=== PATIENT | female | born 1960 | race Asian ===

== ENCOUNTER → 2016-08-19 | Outpatient (CLI) | payer OTHER ==
[2016-08-19 09:46] LABS: Hemoglobin A1C 6.6 % (4.2-6.1)
[2016-08-19 09:50] LABS: ALT 67 U/L (9-52); AST 39 U/L (14-36); Alkaline Phosphatase 131 U/L (38-126); Anion Gap 15 mmol/L; Blood Urea Nitrogen 15 mg/dL (7-17); Calcium 9.3 mg/dL (8.4-10.2); Carbon Dioxide 26 mmol/L (22-30); Chloride 107 mmol/L (98-107); Cholesterol 211 mg/dL (<200); Glucose 115 mg/dL (74-99); HDL Cholesterol 53 mg/dL (40-60); Non-African American GFR(MDRD) >60 (>60 ml/min/1.73 sqM); Potassium 3.4 mmol/L (3.5-5.1); Sodium 148 mmol/L (137-145); Total Bilirubin 2.4 mg/dL (0.2-1.3); Triglycerides 112 mg/dL (<150)
== END | disposition home or self-care (01) ==
LOC: LABWHC1 08:15
PROVIDERS: ATTEND Internal Medicine Endocrinology, Diabetes & Metabolism
DX: R73.09 Other abnormal glucose (principal)
CPT/HCPCS: 36415; 80053; 80061; 83036; 84443

== ENCOUNTER → 2016-09-01 | Outpatient (CLI) | payer OTHER ==
[2016-09-01 11:47] LABS: Blood Urea Nitrogen 12 mg/dL (7-17); Non-African American GFR(MDRD) >60 (>60 ml/min/1.73 sqM)
== END | disposition home or self-care (01) ==
LOC: LABWHC1 10:49
PROVIDERS: ATTEND Otolaryngology
DX: H93.19 Tinnitus, unspecified ear (principal); H91.90 Unspecified hearing loss, unspecified ear
CPT/HCPCS: 36415; 82565; 84520

== ENCOUNTER → 2016-09-08 | Outpatient (CLI) | payer OTHER ==
--- NOTE | 2016-09-08 10:07 | CT ---
EXAMINATION TYPE: CT iac wo/w con DATE OF EXAM: 09/08/2016 8:01 AM COMPARISON: CT brain 02/23/2010 HISTORY: bilateral hearing loss CT DLP: 300 mGycm Automated exposure control for dose reduction was used. CONTRAST: CT scan of the IACs is performed without and with IV Contrast, patient injected with 100 ml mL of Omn ipaque 300. FINDINGS: There is a high riding right jugular bulb. The middle ears appear normal. Semicircular jacy ls are normal. Cochlea are unremarkable. External auditory canals are normal. Mastoid air cells are u nderpneumatized. Incus and malleus abnormal orientation. No expansion or erosion of the internal junito tory canals is evident. Small amount of fluid is in the left middle ear attic on coronal images. Cere bellar pontine angles appear clear. No suspicious enhancement is evident. IMPRESSION: 1. Some left mastoiditis. 2. No suspicious intraluminal auditory canal abnormality.
== END | disposition home or self-care (01) ==
LOC: RADCTMAIN 07:33
PROVIDERS: ATTEND Otolaryngology
DX: H70.92 Unspecified mastoiditis, left ear (principal)
CPT/HCPCS: 70482; Q9967

== ENCOUNTER → 2016-10-06 | Outpatient (CLI) | payer OTHER ==
[2016-10-06 09:14] LABS: ALT 52 U/L (9-52); AST 34 U/L (14-36); Cholesterol 173 mg/dL (<200); Creatine Kinase 125 U/L (30-135); HDL Cholesterol 50 mg/dL (40-60); Triglycerides 117 mg/dL (<150)
== END | disposition home or self-care (01) ==
LOC: LABWHC1 08:22
PROVIDERS: ATTEND Internal Medicine Cardiovascular Disease
DX: E78.2 Mixed hyperlipidemia (principal)
CPT/HCPCS: 36415; 80061; 82550; 84450; 84460

== ENCOUNTER 2016-10-14 09:03 | Day surgery (SDC) | payer OTHER ==
[2016-10-12 11:48] VITALS: BMI 28.3
--- NOTE | 2016-10-14 06:27 | HP ---
DATE OF ADMISSION: Chief complaint is perforation in the left tympanic membrane. 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 It has never been repaired. She states that the left ear has an intermittently drained in the past, which has been treated with antibiotics. She also noted difficulty and a decrease in hearing, especially in the left ear where the perforation is present. At the time that the patient was seen in my office, clinical examination of the ears revealed that the right tympanic membrane was unremarkable. However, the left tympanic membrane revealed the patient had a central perforation encompassing approximately 5% of the tympanic membrane. In addition to this at that time there was purulent material coming from the middle ear space. The patient was treated with a Zithromax Z-Manuel, dexamethasone and also Floxin otic drops. She was rechecked in approximately 2 weeks and at that time the perforation was still present, but the drainage had ceased and the infection appeared to have cleared. Audiological examination confirmed the presence of a conductive hearing loss in the left ear as well as evidence of the perforation. The patient was given the option of having a Kartush patch inserted into the left ear for the purpose of possibly improving the hearing present in her left ear. In addition to this, on a hearing exam it did show that she had some evidence of a mild to moderate bilateral sensorineural hearing loss. The patient is therefore scheduled for insertion of a Kartush patch to a perforation of the left tympanic membrane under either general anesthesia or IV sedation depending upon the anesthesia department's preference. Past medical history reveals that the patient has no known allergies to medications. Current medications include metformin, pravastatin and also enalapril. There is no history of asthma, but the patient does have a history of type 2 diabetes mellitus and hypertension. Review of systems reveals that the cardiovascular system is positive for hypertension. The metabolic/endocrine system is positive for type 2 diabetes mellitus and hypercholesterolemia. The remainder of the review of systems is unremarkable. Previous surgeries include appendectomy and removal of a sebaceous cyst from the right ear. PHYSICAL EXAMINATION: This patient is a pleasant 56-year-old female who is alert and cooperative. HEENT EXAMINATION: Patient is normocephalic. Examination of the right ear is unremarkable. Examination of the left ear reveals that there is a central perforation involving approximately 5% of the left tympanic membrane. The left middle ear space is dry, free of any fluid or evidence of any cholesteatoma. The middle ear ossicles appear to be intact. Pupils are equal, round, and reactive to light and accommodation. Extraocular movements are within normal limits. Intranasal examination reveals moderate septal deviation with compensatory hypertrophy of the inferior turbinates. Examination of the oropharynx, palpation of the neck and cranial nerves 2 through 12 and remainder of the head and neck exam are within normal limits. CHEST/CARDIOVASCULAR: Both lung herring are clear to percussion and auscultation. Patient is in regular sinus rhythm. S1 and S2 are present without evidence of any murmurs, S3s or S4s. Peripheral pulses are bilaterally symmetrical and within normal limits. ABDOMEN: There is no evidence of any masses, megaly or tenderness. The abdomen is soft. Skin is unremarkable. Musculoskeletal and neurological are within normal limits. PELVIC/RECTAL EXAM: The pelvic/rectal exam is deferred at this time because the patient has this done on a regular basis at her family physician's office. The remainder of physical exam is unremarkable. IMPRESSION: Perforation of the left tympanic membrane. PLAN: The patient is scheduled to undergo insertion of a Kartush patch to the perforation of the left tympanic membrane under either general anesthesia or IV sedation, depending upon the anesthesia department's preference. ATTENTION RNS IN THE PRESURGICAL AREA: I have not ordered nor has my office ordered any presurgical prophylactic antibiotics for this patient. The only medication that I have ordered is for the patient to receive 1000 mg of Ofirmev IV to be given once an intravenous line has been established. Therefore, if any presurgical prophylactic antibiotics are sent to the presurgical area for this patient they should be canceled and returned to the pharmacy department. In addition make sure that the patient's account is credited appropriately. Again, I have not ordered any be presurgical prophylactic antibiotics for this patient. I have explained the operation/procedure to the patient, including the risks, benefits, side effects, alternative therapies (including not receiving the proposed treatment or service), the likelihood of the patient achieving his/her goals, and potential recuperation problems for the procedure/sedation/analgesia, as well as any blood products, if indicated. I also explained to the patient the risks, benefits, and side effects of the alternatives, as well as the risks related to not receiving the proposed procedure, care treatment or services.
[~2016-10-14 09:03] MED LIST: DEXAMETHASONE SOD PHOSPHATE 10 MG/ML 1 ML VIAL IV ONE; HYDROmorphone 1 MG/ML 1 ML SYRINGE IVP PRN; LACTATED RINGERS 1,000 ML IV SCH; MIDAZOLAM 2 MG/2 ML VIAL IV PRN; ONDANSETRON 4 MG/2 ML VIAL IVP ONE; Pre Op ABX Message 1 EACH MISC MISCELLANE ONE; SCOPOLAMINE 1.5MG/72HR PATCH TRANSDERM ONE
[2016-10-14] MEDS ORDERED: LIDOCAINE 1% 20 ML VIAL (10MG/ML) FOR IV START INTRADERMA ONE (09:58)
[2016-10-14 10:05] LABS: Glucose,Whole Blood 86 mg/dL (75-99)
[2016-10-14] MEDS ORDERED: ACETAMINOPHEN IV (For NPO) 1,000 MG in EMPTY BAG 1 BAG IVPB ONE (10:20)
[2016-10-14] MEDS ORDERED: fentaNYL (PF) 50 MCG/ML 2 ML AMP ONE (11:49)
[2016-10-14] MEDS ORDERED: LIDOCAINE 1% INJ 10MG/ML (20 ML MDV) ONE (11:49)
[2016-10-14] MEDS ORDERED: PROPOFOL 10 MG/ML 20 ML VIAL IV ONE (11:49)
[2016-10-14] MEDS ORDERED: MIDAZOLAM 2 MG/2 ML VIAL ONE (11:49)
[2016-10-14] MEDS ORDERED: OFLOXACIN 0.3% OTIC DROPS 5 ML BTL LEFT EAR ONE (12:05)
[2016-10-14] MEDS ORDERED: CLINDAMYCIN IV ONE ×2 (12:09)
[2016-10-14] MEDS ORDERED: SODIUM CHLORIDE 0.9% IV ONE ×2 (12:09)
[2016-10-14 12:33] VITALS: TEMP 98.1
[2016-10-14] MEDS ORDERED: LACTATED RINGERS 1,000 ML IV ONE ×2 (13:09)
[2016-10-14 13:15] LABS: Glucose,Whole Blood 111 mg/dL (75-99)
[2016-10-14 13:22] VITALS: PULSE 67; RESP 18
[2016-10-14 13:43] VITALS: BP 119/80
--- NOTE | 2016-10-16 18:23 | OP ---
DATE OF SERVICE: 10/14/2016 SURGEON: ELIJAH JOHNS MD PUBLICATION DESIGNER: PREOPERATIVE DIAGNOSIS: Perforation of the left tympanic membrane. POSTOPERATIVE DIAGNOSIS: Perforation of the left tympanic membrane. OPERATION: Insertion of a 3 mm Kartush patch to the perforation of the left tympanic membrane. ANESTHESIA: General. ESTIMATED BLOOD LOSS: 0 SPECIMENS REMOVED: COMPLICATIONS: None. OPERATIVE FINDINGS: OPERATIVE PROCEDURE: The patient was placed on the operating table in the supine position and after uneventful induction and mask anesthesia, satisfactory general anesthesia was obtained. Next, using the Zeiss operating microscope a #3 aural speculum to the left external auditory canal was cleansed of all wax and debris. It was noted that there was a scant amount of purulent material covering the perforation of the left tympanic membrane and this was suctioned using a small Corado suction. Next, a small amount of Ofloxin solution was placed in the left middle ear space and subsequently a 3 mm Kartush patch was chosen and this was inserted into the perforation in the usual and customary fashion without any difficulty. Next, using a combination of a Hallpike and an angled Anderson needle, the patch was manipulated into the proper position and care was taken to make sure that it was well seated on both sides of the tympanic membrane. The left external auditory canal was then filled with Ofloxin otic solution and at this point, the procedure was terminated. There were no intraoperative complications. The patient tolerated the procedure well and was returned to the recovery room in satisfactory condition.
== END 2016-10-14 13:53 | disposition home or self-care (01) ==
LOC: OR 09:03
PROVIDERS: ATTEND Otolaryngology
DX: H72.92 Unspecified perforation of tympanic membrane, left ear (principal); I10 Essential (primary) hypertension; E11.9 Type 2 diabetes mellitus without complications; Z79.84 Long term (current) use of oral hypoglycemic drugs; E78.00 Pure hypercholesterolemia, unspecified; Z79.899 Other long term (current) drug therapy; Z91.040 Latex allergy status
CPT/HCPCS: 69610; J2250; J1100; J2405; J2001; J3010; J0131; J2704

== ENCOUNTER 2016-11-24 14:02 | Emergency (ER) | payer OTHER ==
[2016-11-24 14:11] VITALS: BP 177/73; PULSE 69; RESP 18; TEMP 97.1
--- NOTE | 2016-11-24 14:33 | ED ---
General Adult HPI - General Chief complaint: Abdominal Pain Stated complaint: Dizzy Time Seen by Provider: 11/24/16 14:24 Source: patient, RN notes reviewed Mode of arrival: ambulatory Limitations: no limitations - History of Present Illness Initial comments: Patient a 56-year-old female who presents emergency room today with a chief complaint of increased urinary frequency. Does admit to some dysuria. Admits to a burning sensation. He states she's gone a time the last 2 hours. Patient states she's had a urinary tract infection once in the past this does remind her of the symptoms. Patient denies any other complaints or associated symptoms currently. Patient denies any recent fever, chills, shortness of breath , chest pain, back pain, abdominal pain, nausea or vomiting, numbness or tingling, constipation or diarrhea, headaches or visual changes, or any other complaints. - Related Data Home Medications Medication Instructions Recorded Confirmed metFORMIN HCL [Glucophage] 500 mg PO BID 09/14/16 11/24/16 Atorvastatin [Lipitor] 20 mg PO DAILY 10/14/16 11/24/16 Enalapril [Vasotec] 10 mg PO DAILY 11/24/16 11/24/16 Previous Rx's Medication Instructions Recorded Phenazopyridine [Pyridium] 100 mg PO TID 3 Days 11/24/16 Sulfamethox-Tmp 800-160Mg [Bactrim 1 tab PO Q12HR #20 tab 11/24/16 DS 800-160 mg] Allergies Allergy/AdvReac Type Severity Reaction Status Date / Time latex Allergy Rash/Hives Verified 11/24/16 14:40 Review of Systems ROS Statement: Those systems with pertinent positive or pertinent negative responses have been documented in the HPI. ROS Other: All systems not noted in ROS Statement are negative. Past Medical History Past Medical History: Diabetes Mellitus, Hyperlipidemia, Hypertension Additional Past Medical History / Comment(s): BLOODY STOOLS-HGB 7.0 RECEIVED 2 UNITS PRBC-ADMITTED IN [facility] NOVEMBER 2014-STOOLS NOW ARE NORMAL BROWN History of Any Multi-Drug Resistant Organisms: None Reported Past Surgical History: Hysterectomy Additional Past Surgical History / Comment(s): CYST REMOVED BACK OF EAR Past Anesthesia/Blood Transfusion Reactions: No Reported Reaction Additional Past Anesthesia/Blood Transfusion Reaction / Comment(s): NO COMPLICATIONS Past Psychological History: No Psychological Hx Reported Smoking Status: Never smoker Past Alcohol Use History: None Reported Past Drug Use History: None Reported - Past Family History Mother Family Medical History: Renal Disease Additional Family Medical History / Comment(s): KIDNEY STONES Father Additional Family Medical History / Comment(s): UNK HX General Exam - General Exam Comments Initial Comments: General: The patient is awake and alert, in no distress, and does not appear acutely ill. Eye: Pupils are equal, round and reactive to light, extra-ocular movements are intact. No nystagmus. There is normal conjunctiva bilaterally. No signs of icterus. Ears, nose, mouth and throat: There are moist mucous membranes and no oral lesions. Neck: The neck is supple, there is no tenderness or JVD. Cardiovascular: There is a regular rate and rhythm. No murmur, rub or gallop is appreciated. Respiratory: Lungs are clear to auscultation, respirations are non-labored, breath sounds are equal. No wheezes, stridor, rales, or rhonchi. Gastrointestinal: Soft, non-distended, non-tender abdomen without masses or organomegaly noted. There is no rebound or guarding present. No CVA tenderness. Bowel sounds are unremarkable. Musculoskeletal: Normal ROM, no tenderness. Strength 5/5. Sensation intact. Pulses equal bilaterally 2+. Neurological: A&O x 3. CN II-XII intact, There are no obvious motor or sensory deficits. Coordination appears grossly intact. Speech is normal. Skin: Skin is warm and dry and no rashes or lesions are noted. Psychiatric: Cooperative, appropriate mood & affect, normal judgment. Limitations: no limitations Course Vital Signs 11/24/16 14:07 Temperature 97.1 F L Pulse Rate 69 Respiratory 18 Rate Blood Pressure 177/73 Medical Decision Making - Medical Decision Making Patient reexamined at this time shows no signs of distress. Patient's urinalysis reviewed and shows evidence for urinary tract infection. Patient will be given dose Rocephin here in emergency room discharged home on antibiotics and pyridium for her symptoms. She is advised follow-up the family doctor over the next 2 days. Advised to have a repeat urinalysis. Advised return to emergency room for any fever or increase or worsening of symptoms or any other concerns. Patient states understanding and is in agreement. - Lab Data Lab Results 11/24/16 Range/Units 14:29 Urine Color Yellow Urine Appearance Cloudy H (Clear) Urine pH 5.5 (5.0-8.0) Ur Specific [place] 1.017 (1.001-1.035) Urine Protein 1+ H (Negative) Urine Glucose (UA) Negative (Negative) Urine Ketones Negative (Negative) Urine Blood Moderate H (Negative) Urine Nitrite Negative (Negative) Urine Bilirubin Negative (Negative) Urine Urobilinogen <2.0 (<2.0) mg/dL Ur Leukocyte Esterase Large H (Negative) Urine RBC 100 H (0-5) /hpf Urine WBC >182 H (0-5) /hpf Urine WBC Clumps Few H (None) /hpf Ur Squamous Epith Cells 2 (0-4) /hpf Calcium Oxalate Crystal Many H (None) /hpf Urine Mucus Rare H (None) /hpf Disposition Clinical Impression: UTI (urinary tract infection) Disposition: HOME SELF-CARE Condition: Good Instructions: Urinary Tract Infection in Women (ED) Additional Instructions: Please be aware that pyridium will change urine to a orange color. Please follow -up with family doctor in the next 2 days. Please return to emergency room if the symptoms increase or worsen or for any other concerns. Prescriptions: Phenazopyridine [Pyridium] 100 mg PO TID 3 Days Sulfamethox-Tmp 800-160Mg [Bactrim DS 800-160 mg] 1 tab PO Q12HR #20 tab Time of Disposition: 14:59
[2016-11-24 14:55] LABS: Appearance,Urine Cloudy (Clear); Bilirubin,Urine Negative (Negative); Calcium Oxalate Crystals,Urine Many /hpf; Glucose,Urine (UA) Negative (Negative); Ketones,Urine Negative (Negative); Leukocyte Esterase,Urine Large (Negative); Mucus,Urine Rare /hpf; Nitrite,Urine Negative (Negative); PH, Urine 5.5 (5.0-8.0); Particle Count 5436; Protein,Urine 1+ (Negative); RBC,Urine 100 /hpf (0-5); Specific Gravity,Urine 1.017 (1.001-1.035); Squamous Epithelial Cell,Urine 2 /hpf (0-4); UA Billing (MACRO vs. MICRO) MICRO; Urobilinogen,Urine <2.0 mg/dL (<2.0); WBC,Urine >182 /hpf (0-5)
[2016-11-24] MEDS ORDERED: cefTRIAXone 1,000 MG VIAL (IM USE) IM ONE (15:00)
== END 2016-11-24 15:06 | disposition home or self-care (01) ==
LOC: EC 14:02
DX: N39.0 Urinary tract infection, site not specified (principal); E11.9 Type 2 diabetes mellitus without complications; E78.5 Hyperlipidemia, unspecified; I10 Essential (primary) hypertension; Z79.84 Long term (current) use of oral hypoglycemic drugs; Z79.899 Other long term (current) drug therapy; Z91.040 Latex allergy status; Z90.710 Acquired absence of both cervix and uterus
CPT/HCPCS: 81001; 87086; 99284; 96372; J0696

== ENCOUNTER 2017-07-10 17:56 | Emergency (ER) | payer OTHER ==
[2017-07-10 19:34] LABS: Glucose,Whole Blood 172 mg/dL (75-99)
[2017-07-10] MEDS ORDERED: DEXAMETHASONE SOD PHOSPHATE 10 MG/ML 1 ML VIAL IV STA (19:54)
[2017-07-10] MEDS ORDERED: METOCLOPRAMIDE 5 MG/ML 2 ML VIAL IVP STA (19:54)
[2017-07-10] MEDS ORDERED: KETOROLAC 30 MG/ML 1 ML VIAL IVP STA (19:54)
[2017-07-10] MEDS ORDERED: MECLIZINE 12.5 MG TAB PO STA (19:55)
[2017-07-10 20:14] LABS: Basophils % (A) 1 %; CH 28.7; CHCM 34.7; Eosinophils # (A) 0.2 k/uL (0-0.7); Eosinophils % (A) 3 %; HCT 37.7 % (34.0-46.0); HDW 2.66; HGB 12.6 gm/dL (11.4-16.0); Luc # (Auto) 0.15; Luc % (Auto) 2; Lymphocytes % (A) 32 %; MCH 27.7 pg (25.0-35.0); MCHC 33.3 g/dL (31.0-37.0); MCV 83.2 fL (80.0-100.0); Mean Platelet Volume 9.1; Monocytes # (A) 0.6 k/uL (0-1.0); Monocytes % (A) 10 %; Neutrophils # (A) 3.3 k/uL (1.3-7.7); Neutrophils % (A) 52 %; RBC 4.53 m/uL (3.80-5.40); RDW 12.4 % (11.5-15.5); WBC 6.3 k/uL (3.8-10.6); WBC (Perox) 6.07
[2017-07-10 20:18] LABS: INR 1.1 (<1.2); Partial Thromboplastin Time 23.4 sec (22.0-30.0); Prothrombin Time 10.9 sec (9.0-12.0)
--- NOTE | 2017-07-10 20:23 | CT ---
EXAMINATION TYPE: CT brain wo con DATE OF EXAM: 07/10/2017 COMPARISON: 02/23/2010 HISTORY: Frontal PRASAD and dizziness x2 days. CT DLP: 1017.8 mGycm Automated exposure control for dose reduction was used. FINDINGS: Ventricles have normal size. There is no mass effect nor midline shift. There is no sign of intracran ial hemorrhage. The calvarium is intact. There is little pneumatization of the mastoid air cells. IMPRESSION: THERE IS EVIDENCE FOR BILATERAL CHRONIC MASTOIDITIS. NO ACUTE INTRACRANIAL ABNORMALITY. NO CHANGE.
[2017-07-10 20:24] LABS: ALT 69 U/L (9-52); AST 30 U/L (14-36); Alkaline Phosphatase 98 U/L (38-126); Anion Gap 9 mmol/L; Blood Urea Nitrogen 16 mg/dL (7-17); Calcium 9.1 mg/dL (8.4-10.2); Carbon Dioxide 26 mmol/L (22-30); Chloride 106 mmol/L (98-107); Glucose 131 mg/dL (74-99); Non-African American GFR(MDRD) >60 (>60 ml/min/1.73 sqM); Potassium 3.6 mmol/L (3.5-5.1); Sodium 141 mmol/L (137-145); Total Protein 6.9 g/dL (6.3-8.2)
--- NOTE | 2017-07-10 21:40 | ED ---
Headache HPI - General Chief Complaint: Headache Stated Complaint: TIA Symptoms Time Seen by Provider: 07/10/17 19:45 Mode of arrival: ambulatory Limitations: no limitations - History of Present Illness Initial Comments: This 56-year-old female presents with a complaint of a right-sided headache. She also is having some dizziness which is difficult for her to further describe. She states that her right face feels numb. She denies any extremity weakness or numbness. She denies any previous similar incidents. She denies any previous history of headaches. She's never had any atypical migraine headaches that she is aware of. She rates the pain is moderate in severity and is present to the right face and scalp region. She denies any fevers or chills. There is no neck pain. There is no other complaints or modifying factors. - Related Data Home Medications Medication Instructions Recorded Confirmed Atorvastatin [Lipitor] 20 mg PO DAILY 10/14/16 07/10/17 Enalapril [Vasotec] 20 mg PO DAILY 07/10/17 07/10/17 Multivitamins, Thera [Multivitamin 1 tab PO DAILY 07/10/17 07/10/17 (formulary)] metFORMIN HCL ER [Glucophage Xr] 1,000 mg PO PC-SUPPER 07/10/17 07/10/17 Allergies Allergy/AdvReac Type Severity Reaction Status Date / Time latex Allergy Rash/Hives Verified 07/10/17 19:52 Review of Systems ROS Statement: Those systems with pertinent positive or pertinent negative responses have been documented in the HPI. ROS Other: All systems not noted in ROS Statement are negative. Past Medical History Past Medical History: Diabetes Mellitus, Hyperlipidemia, Hypertension Additional Past Medical History / Comment(s): BLOODY STOOLS-HGB 7.0 RECEIVED 2 UNITS PRBC-ADMITTED IN [facility] NOVEMBER 2014-STOOLS NOW ARE NORMAL BROWN History of Any Multi-Drug Resistant Organisms: None Reported Past Surgical History: Hysterectomy Additional Past Surgical History / Comment(s): CYST REMOVED BACK OF EAR Past Anesthesia/Blood Transfusion Reactions: No Reported Reaction Additional Past Anesthesia/Blood Transfusion Reaction / Comment(s): NO COMPLICATIONS Past Psychological History: No Psychological Hx Reported Smoking Status: Never smoker Past Alcohol Use History: None Reported Past Drug Use History: None Reported - Past Family History Mother Family Medical History: Renal Disease Additional Family Medical History / Comment(s): KIDNEY STONES Father Additional Family Medical History / Comment(s): UNK HX General Exam - General Exam Comments Initial Comments: GENERAL: The patient is well nourished and well hydrated. VITAL SIGNS: Heart rate, blood pressure, respiratory rate reviewed as recorded in nurse's notes. EYES: Pupils are round and reactive. Extraocular movements are intact. No conjunctival / lid redness or swelling. ENT: No external evidence of injury, swelling, or ecchymosis. Airway is patent. Throat is clear. NECK: Nontender. No swelling or evidence of injury. No subcutaneous emphysema. Trachea is midline. No thyroid mass. HEART: Regular rate and rhythm. Good peripheral pulses. LUNGS/CHEST: Breath sounds clear and equal bilaterally. No rales, rhonchi, or wheezes. No ecchymosis, subcutaneous emphysema, or tenderness. ABDOMEN: Abdomen soft without tenderness. No palpable masses or organomegaly. No peritoneal signs. No abdominal wall swelling or ecchymosis. EXTREMITIES: No extremity tenderness. Normal muscle tone and function. No thoracolumbar tenderness. NEUROLOGIC: Cranial nerve exam reveals face is symmetrical, tongue is midline, speech is clear. There is some subjective numbness present to the right face only. There is no weakness to the extremities. There is no facial droop identified. SKIN: No abrasions or ecchymosis is noted. No induration or masses noted. PSYCHIATRIC: Alert and oriented. Appropriate behavior and judgment. Limitations: no limitations Course Vital Signs 07/10/17 07/10/17 18:20 20:51 Temperature 97.8 F Pulse Rate 68 62 Respiratory 20 18 Rate Blood Pressure 168/76 119/69 O2 Sat by Pulse 99 96 Oximetry Medical Decision Making - Medical Decision Making The patient was seen and examined. All diagnostics were reviewed. EKG shows a normal sinus rhythm at a rate of 62. There is no acute ST-T wave changes identified. The OR interval is 120, the QRS duration is 88, and the QTc interval is 448. The patient had a computed tomography scan of the brain which does not show any acute processes. The possibility of chronic mastoiditis is possible per radiologist but there is no tenderness over the mastoids on exam. The patient also had a laboratory analysis which is all essentially within normal limits. The patient received an IV with fluid hydration, Decadron, Toradol, Reglan. She also received Antivert orally. On reexamination all of her symptoms have completely resolved. She no longer has any dizziness, headache, or right facial paresthesias. She is feeling back to normal. It is felt as though her symptoms may be related to an atypical migraine headache. She appears stable for discharge with close follow-up with her primary doctor. She and her are agreeable and leaves in no distress. - Lab Data Result diagrams: 07/10/17 20:00 07/10/17 20:00 Lab Results 07/10/17 07/10/17 07/10/17 Range/Units 19:29 20:00 20:00 WBC 6.3 (3.8-10.6) k/uL RBC 4.53 (3.80-5.40) m/uL Hgb 12.6 (11.4-16.0) gm/dL Hct 37.7 (34.0-46.0) % MCV 83.2 (80.0-100.0) fL MCH 27.7 (25.0-35.0) pg MCHC 33.3 (31.0-37.0) g/dL RDW 12.4 (11.5-15.5) % Plt Count 137 L (150-450) k/uL Neutrophils % 52 % Lymphocytes % 32 % Monocytes % 10 % Eosinophils % 3 % Basophils % 1 % Neutrophils # 3.3 (1.3-7.7) k/uL Lymphocytes # 2.0 (1.0-4.8) k/uL Monocytes # 0.6 (0-1.0) k/uL Eosinophils # 0.2 (0-0.7) k/uL Basophils # 0.0 (0-0.2) k/uL PT (9.0-12.0) sec INR (<1.2) APTT (22.0-30.0) sec Sodium 141 (137-145) mmol/L Potassium 3.6 (3.5-5.1) mmol/L Chloride 106 (98-107) mmol/L Carbon Dioxide 26 (22-30) mmol/L Anion Gap 9 mmol/L BUN 16 (7-17) mg/dL Creatinine 0.80 (0.52-1.04) mg/dL Est GFR (MDRD) Af Amer >60 (>60 ml/min/1.73 sqM) Est GFR (MDRD) Non-Af >60 (>60 ml/min/1.73 sqM) Glucose 131 H (74-99) mg/dL POC Glucose (mg/dL) 172 H (75-99) mg/dL POC Glu Client Technical Support Associate Juan Whitmore Calcium 9.1 (8.4-10.2) mg/dL Total Bilirubin 2.0 H (0.2-1.3) mg/dL AST 30 (14-36) U/L ALT 69 H (9-52) U/L Alkaline Phosphatase 98 (38-126) U/L Total Protein 6.9 (6.3-8.2) g/dL Albumin 4.1 (3.5-5.0) g/dL 07/10/17 Range/Units 20:00 WBC (3.8-10.6) k/uL RBC (3.80-5.40) m/uL Hgb (11.4-16.0) gm/dL Hct (34.0-46.0) % MCV (80.0-100.0) fL MCH (25.0-35.0) pg MCHC (31.0-37.0) g/dL RDW (11.5-15.5) % Plt Count (150-450) k/uL Neutrophils % % Lymphocytes % % Monocytes % % Eosinophils % % Basophils % % Neutrophils # (1.3-7.7) k/uL Lymphocytes # (1.0-4.8) k/uL Monocytes # (0-1.0) k/uL Eosinophils # (0-0.7) k/uL Basophils # (0-0.2) k/uL PT 10.9 (9.0-12.0) sec INR 1.1 (<1.2) APTT 23.4 (22.0-30.0) sec Sodium (137-145) mmol/L Potassium (3.5-5.1) mmol/L Chloride (98-107) mmol/L Carbon Dioxide (22-30) mmol/L Anion Gap mmol/L BUN (7-17) mg/dL Creatinine (0.52-1.04) mg/dL Est GFR (MDRD) Af Amer (>60 ml/min/1.73 sqM) Est GFR (MDRD) Non-Af (>60 ml/min/1.73 sqM) Glucose (74-99) mg/dL POC Glucose (mg/dL) (75-99) mg/dL POC Glu Client Technical Support Associate ID Calcium (8.4-10.2) mg/dL Total Bilirubin (0.2-1.3) mg/dL AST (14-36) U/L ALT (9-52) U/L Alkaline Phosphatase (38-126) U/L Total Protein (6.3-8.2) g/dL Albumin (3.5-5.0) g/dL Disposition Clinical Impression: Right facial numbness, Dizziness, Atypical migraine, Cephalgia Disposition: HOME SELF-CARE Condition: Good Instructions: Migraine Headache (ED), Dizziness (ED), Paresthesia (ED) Referrals: Rachel Esteban MD [Primary Care Provider] - 1-2 days Time of Disposition: 21:40
[2017-07-10 21:54] VITALS: BP 111/65; PULSE 68; RESP 16; TEMP 98
== END 2017-07-10 21:54 | disposition home or self-care (01) ==
LOC: EC 17:56
DX: G43.909 Migraine, unspecified, not intractable, without status migrainosus (principal); R20.0 Anesthesia of skin; E11.9 Type 2 diabetes mellitus without complications; E78.5 Hyperlipidemia, unspecified; I10 Essential (primary) hypertension; Z79.84 Long term (current) use of oral hypoglycemic drugs; Z79.899 Other long term (current) drug therapy; Z91.040 Latex allergy status
CPT/HCPCS: 36415; 93005; 80053; 85025; 85610; 85730; 70450; 99284; 96374; 96375 ×2; J1100; J2765; J1885

== ENCOUNTER → 2018-01-02 | Outpatient (CLI) | payer OTHER ==
--- NOTE | 2018-01-02 13:23 | MM ---
Reason for exam: screening (asymptomatic). Baseline mammogram. History: Family history of breast cancer in mother at age 77 and breast cancer in sister at age 38. Physical Findings: Nurse did not find any significant physical abnormalities on exam. MG Screening Mammo w CAD Bilateral CC and MLO view(s) were taken. There are scattered fibroglandular densities. 1.0cm oval mass 4 o'clock left breast and small nodularity posterior 1 o'clock. Otherwise, no discrete abnormality. These results were verbally communicated with the patient and result sheet given to the patient on 01/02/18. ASSESSMENT: Incomplete: need additional imaging evaluation, BI-RAD 0 RECOMMENDATION: Special view mammogram of the left breast. If lesion persists on supplemental views, image directed ultrasound is recommended. [facility] will attempt to contact patient to return for supplemental views and ultrasound if indicated.
--- NOTE | 2018-01-02 13:24 | MM ---
Reason for exam: additional evaluation requested from abnormal screening. History: Family history of breast cancer in mother at age 77 and breast cancer in sister at age 38. Physical Findings: Breast exam preformed at baseline screening. MG Work Up Mamm w CAD LT Spot compression CC, spot compression MLO, and LM view(s) were taken of the left breast. There are scattered fibroglandular densities. 1.0cm oval circumscribed mass 4 o'clock left breast persists. 4mm posterior 1 o'clock nodule becomes less defined on spot MLO but persists on other views. These results were verbally communicated with the patient and result sheet given to the patient on 01/02/18. ASSESSMENT: Incomplete: need additional imaging evaluation, BI-RAD 0 RECOMMENDATION: Ultrasound of the left breast.
--- NOTE | 2018-01-02 13:27 | USB ---
Reason for exam: additional evaluation requested from abnormal screening. History: Family history of breast cancer in mother at age 77 and breast cancer in sister at age 38. US Breast Workup Limited LT Left limited breast ultrasound including focal area of concern, retroareolar and axilla demonstrates a 0.8 x 0.6 x 0.7cm solid lesion at 4 o'clock for which a biopsy is recommended, lymph nodes at the axilla tail, prominent but non-enlarged and a 0.2 x 0.1 x 0.2cm lesion too small to characterize at 1 o'clock, may correspond to the mammographic finding. If seen at the time of biopsy, this could be sampled at well. These results were verbally communicated with the patient and result sheet given to the patient on 01/02/18. ASSESSMENT: Suspicious, BI-RAD 4 RECOMMENDATION: Ultrasound core biopsy of the left breast. (4 o'clock, possible 2 site if the 1 o'clock lesion is reproduced) Called Dr. Esteban with mammographic findings and has scheduled an appointment for the patient for 01/18/18 at 11:[address] Grover. PRELIMINARY REPORT CALLED AND FAXED TO DR. GROVER ON 01/02/18.
== END | disposition home or self-care (01) ==
LOC: RADMAMWWP 11:25
PROVIDERS: ATTEND Family Medicine
DX: Z12.31 Encounter for screening mammogram for malignant neoplasm of breast (principal); R92.8 Other abnormal and inconclusive findings on diagnostic imaging of breast
CPT/HCPCS: 77065; 77067

== ENCOUNTER 2018-04-08 16:24 | Inpatient (IN) | payer OTHER ==
[2018-04-08 17:15] LABS: Basophils % (A) 0 %; Eosinophils # (A) 0.3 k/uL (0-0.7); Eosinophils % (A) 3 %; HCT 44.6 % (34.0-46.0); HGB 14.1 gm/dL (11.4-16.0); Lymphocytes # (A) 1.2 k/uL (1.0-4.8); Lymphocytes % (A) 12 %; MCH 26.8 pg (25.0-35.0); MCHC 31.7 g/dL (31.0-37.0); MCV 84.6 fL (80.0-100.0); Mean Platelet Volume 8.2; Monocytes # (A) 0.6 k/uL (0-1.0); Monocytes % (A) 6 %; Neutrophils # (A) 7.6 k/uL (1.3-7.7); Neutrophils % (A) 79 %; Platelet Count 183 k/uL (150-450); RBC 5.27 m/uL (3.80-5.40); RDW 12.7 % (11.5-15.5); WBC 9.7 k/uL (3.8-10.6)
[2018-04-08 17:22] LABS: ALT 699 U/L (9-52); Albumin 4.5 g/dL (3.5-5.0); Alkaline Phosphatase 167 U/L (38-126); Anion Gap 11 mmol/L; Blood Urea Nitrogen 18 mg/dL (7-17); Calcium 9.5 mg/dL (8.4-10.2); Carbon Dioxide 22 mmol/L (22-30); Chloride 109 mmol/L (98-107); Glucose 143 mg/dL (74-99); Magnesium 2.1 mg/dL (1.6-2.3); Potassium 3.6 mmol/L (3.5-5.1); Sodium 142 mmol/L (137-145); Total Protein 7.8 g/dL (6.3-8.2)
[2018-04-08 17:34] LABS: Creatine Kinase 98 U/L (30-135)
[2018-04-08 17:38] LABS: Partial Thromboplastin Time 20.3 sec (22.0-30.0); Prothrombin Time 9.7 sec (9.0-12.0)
[2018-04-08 17:41] LABS: AST 1027 U/L (14-36)
[2018-04-08 17:45] LABS: Creatine Kinase MB 1.4 ng/mL (0.0-2.4); Troponin I <0.012 ng/mL (0.000-0.034)
[2018-04-08] MEDS ORDERED: fentaNYL (PF) 50 MCG/ML 2 ML AMP IV STA (17:45)
[2018-04-08] MEDS ORDERED: ONDANSETRON 4 MG/2 ML VIAL IVP STA (17:45)
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
[2018-04-08 18:14] LABS: Amylase 2122 U/L (30-110)
[2018-04-08 18:25] LABS: Lipase >20000 U/L (23-300)
--- NOTE | 2018-04-08 18:56 | XR ---
EXAMINATION TYPE: XR chest 2V DATE OF EXAM: 04/08/2018 COMPARISON: NONE HISTORY: Chest pain TECHNIQUE: Frontal and lateral views of the chest are obtained. FINDINGS: There is no focal air space opacity, pleural effusion, or pneumothorax seen. The cardiac silhouette size is within normal limits. The osseous structures are intact. IMPRESSION: No acute cardiopulmonary process.
--- NOTE | 2018-04-08 19:47 | CT ---
EXAMINATION TYPE: CT angio chest DATE OF EXAM: 04/08/2018 COMPARISON: NONE HISTORY: pain CT DLP: 252.8 mGycm. Automated Exposure Control for Dose Reduction was Utilized. CONTRAST: CTA scan of the thorax is performed with IV Contrast, patient injected with 100 mL of Isovue 370, pul monary embolism protocol. MIP Images are created on CT scanner and reviewed. FINDINGS: LUNGS: Lungs demonstrate scattered areas of groundglass opacities which is more prominent in the depe ndent portion. A calcified granuloma seen in the left lung apex. There is no pleural effusion or pneu mothorax seen. The tracheobronchial tree is patent. MEDIASTINUM: There is satisfactory enhancement of the pulmonary artery and its branches, there is no CT evidence for pulmonary embolism. There are no greater than 1 cm hilar or mediastinal lymph nodes. No cardiomegaly or pericardial effusion is seen. OTHER: No additional significant abnormality is seen. IMPRESSION: No evidence of pulmonary arterial embolism.
--- NOTE | 2018-04-08 20:11 | US ---
EXAMINATION TYPE: US gallbladder DATE OF EXAM: 04/08/2018 COMPARISON: US, CT CLINICAL HISTORY: Pain. ABD pain EXAM MEASUREMENTS: Liver Length: 16.2 cm CBD: 0.6 cm Right Kidney: 10.4 x 3.6 x 4.2 cm Pancreas: wnl, tail obscured by overlying bowel gas Liver: Limited views, difficult to penetrate Gallbladder: Gallbladder is not definitively visualized. Evidence for sonographic Slater's sign: No CBD: wnl Right Kidney: Limited views appeared wnl IMPRESSION: Limited exam. Gallbladder is not definitively visualized which may be secondary to overlying bowel ga s or contracted state of the gallbladder. Otherwise normal sonographic evaluation.
[2018-04-08] MEDS ORDERED: SODIUM CHLORIDE 0.9% 1,000 ML IV STA ×2 (20:32)
[2018-04-08] MEDS ORDERED: NALOXONE 0.4 MG/ML 1 ML VIAL IV PRN (20:36)
[2018-04-08] MEDS: PANTOPRAZOLE 40 MG/10 ML VIAL IV SCH (22:12)
[2018-04-09 04:47] LABS: Hepatitis A AB IgM Index 0.02; Hepatitis A Antibody IgM NEGATIVE
[2018-04-09] MEDS: PANTOPRAZOLE 40 MG/10 ML VIAL IV SCH ×2 (08:53→21:41)
[2018-04-09] MEDS: HYDROmorphone 1 MG/ML 1 ML SYRINGE IVP PRN (09:04)
[2018-04-09 11:53] LABS: Hepatitis B Core IgM Non-Reactive (Non-Reactive)
[2018-04-09 12:37] LABS: Glucose,Whole Blood 80 mg/dL (75-99)
[2018-04-09] MEDS: INSULIN ASPART 100 UNIT/ML 1 ML 10 ML VIAL SQ SCH ×3 (13:08→21:41)
[2018-04-09] MEDS ORDERED: SODIUM CHLORIDE 0.9% 1,000 ML IV SCH (13:15)
[2018-04-09] MEDS ORDERED: LORazepam 1 MG TAB PO STA (13:38)
[2018-04-09 14:24] LABS: Basophils % (A) 0 %; Eosinophils # (A) 0.1 k/uL (0-0.7); Eosinophils % (A) 4 %; HCT 35.4 % (34.0-46.0); HGB 11.6 gm/dL (11.4-16.0); Lymphocytes # (A) 1.4 k/uL (1.0-4.8); Lymphocytes % (A) 36 %; MCH 28.6 pg (25.0-35.0); MCHC 32.8 g/dL (31.0-37.0); Mean Platelet Volume 8.6; Monocytes # (A) 0.2 k/uL (0-1.0); Monocytes % (A) 6 %; Neutrophils # (A) 2.1 k/uL (1.3-7.7); Neutrophils % (A) 53 %; Platelet Count 103 k/uL (150-450); RBC 4.07 m/uL (3.80-5.40); RDW 12.9 % (11.5-15.5); WBC 3.9 k/uL (3.8-10.6)
[2018-04-09 14:39] LABS: ALT 634 U/L (9-52); AST 484 U/L (14-36); Albumin 3.2 g/dL (3.5-5.0); Alkaline Phosphatase 162 U/L (38-126); Amylase 263 U/L (30-110); Anion Gap 7 mmol/L; Blood Urea Nitrogen 13 mg/dL (7-17); Calcium 8.3 mg/dL (8.4-10.2); Carbon Dioxide 20 mmol/L (22-30); Chloride 114 mmol/L (98-107); Glucose 78 mg/dL (74-99); Lipase 1533 U/L (23-300); Potassium 3.9 mmol/L (3.5-5.1); Sodium 141 mmol/L (137-145); Total Bilirubin 4.3 mg/dL (0.2-1.3); Total Protein 5.8 g/dL (6.3-8.2)
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
--- NOTE | 2018-04-09 16:15 | HP ---
HISTORY AND PHYSICAL DATE OF SERVICE: 04/09/18. PRESENTING COMPLAINT: Abdominal pain. HISTORY OF PRESENTING COMPLAINT: A very pleasant 57-year-old patient, [place]ish-speaking, presents with her . The patient follows with Dr. Rachel Esteban. Chronic stable medical conditions include diabetes, hypertension, hyperlipidemia. The patient yesterday morning started having progressively increasing abdominal pain, presented with upper abdomen, somewhat going to the back with nausea, vomiting. The patient did have 1 bowel movement, low-grade fever. No chills. Pain progressively gotten worsen. The patient presented down to the ER. The patient is found to have elevated liver enzymes and severe pancreatitis. The patient admitted for the same. Started on IV fluids, made n.p.o., given IV pain medication, IV pain medications made her feel a bit better. Ultrasound did not show any obvious gallstones though the ultrasound quality was not very good. REVIEW OF SYSTEMS: CONSTITUTIONAL: Weak, tired. HEENT: None. RESPIRATORY: None. CARDIOVASCULAR: None. GASTROINTESTINAL: As above. GENITOURINARY: None. MUSCULOSKELETAL: None. DERMATOLOGIC, HEMATOLOGIC AND LYMPHATIC: None. PSYCHIATRY: None. NEUROLOGICAL: None. PAST MEDICAL HISTORY: Diabetes, hyperlipidemia, hypertension, blood in the stools back in 2014. No other cause was found. PAST SURGICAL HISTORY: Hysterectomy, cyst removed from the back of the ear. SOCIAL HISTORY: No smoking, no alcohol. Homemaker. . FAMILY HISTORY: Of kidney stones. HOME MEDICATIONS: 1. Glucophage XR 500 mg with supper. 2. Flonase 2 sprays each nostril daily. 3. Vasotec 20 mg p.o. daily. 4. Lipitor 40 mg daily. 5. Ibuprofen 800 mg q.8h p.r.n. ALLERGIES: LATEX EXAM: Vital signs on presentation: Temperature 98.1, pulse 60, respiratory 20, blood pressure 110/72, pulse ox 98 percent on room air. GENERAL APPEARANCE: Average build, lying in bed, tired-appearing. EYES: Pupils equal. Conjunctivae normal. HEENT: External appearance of nose and ears normal. Oral cavity normal. NECK: JVD not raised. Mass not palpable. RESPIRATORY: Effort normal. Lungs are clear. CARDIOVASCULAR: 1st and 2nd sounds normal. No edema. ABDOMEN: Epigastric tenderness. No guarding or rigidity. Liver and spleen not palpable. LYMPHATIC: No lymph nodes palpable in neck or axillae. PSYCHIATRY: Alert and oriented x3. Mood and affect normal. NEUROLOGICAL: Pupils equal. Cranial nerves grossly intact. Power and sensation grossly intact. INVESTIGATIONS: White count 9.9, hemoglobin 14.1, platelets 183, potassium 3.6, BUN 18, creatinine 0.7, AST 1027, ALT 699. Troponin negative. Amylase 2122, lipase greater than 20,000. Hepatitis A IgM IBP. Chest CTA no evidence of PE. Gallbladder ultrasound limited exam. Gallbladder is not definitively visualized because of overlying bowel gas. ASSESSMENT: 1. Acute abdomen. The patient presented with acute severe pancreatitis and also elevated LFTs. The patient's alkaline phosphatase is only 167 and the bilirubin is elevated. It is possible that the patient may have passed a gallstone as that may not be currently visualized even though the CBD is not dilated. 2. Diabetes mellitus type 2 on oral hypoglycemic. 3. Essential hypertension. 4. Hyperlipidemia. PLAN: Patient has been made n.p.o., given IV fluids. Consultation to both GI and General Surgery has been made. The patient may need an ERCP. We will follow up pancreatic liver enzymes today. Care was discussed at length with the patient and the . Patient will need at least 2 night stay for further evaluation. MMODL / IJN: [id number] /
[2018-04-09 17:09] LABS: Glucose,Whole Blood 71 mg/dL (75-99)
[2018-04-09] MEDS ORDERED: DEXTROSE 5%-0.45% NACL 1,000 ML IV SCH (17:30)
[2018-04-09 17:51] LABS: Hemoglobin A1C 6.1 % (4.0-6.0)
--- NOTE | 2018-04-09 17:54 | P.CONS ---
History of Present Illness - Reason for Consult Consult date: 04/09/18 Abdominal pain, pancreatitis, hepatitis Requesting physician: Zhen Crawley - Chief Complaint Chest and abdominal pain - History of Present Illness The patient is a 57-year-old female with a medical history significant for diabetes mellitus, lipidemia and hypertension who presented after developing chest and abdominal pain Monday night. The patient reports that he pain was sharp in nature with radiation to her back. The pain initially started Monday but continued into Monday, waxing and waning in intensity. The patient presented for further evaluation after the pain failed to resolve. The patient denies any prior history of gallbladder disease, liver problems, hepatitis, pancreatitis or similar episodes of pain. Patient had a CTA on presentation negative for a pulmonary embolism and an ultrasound which was limited with the gallbladder not visualized. Her labs were significant for a normal CBC [place] [address] and an amylase of 2122. The patient had elevation in her liver enzymes with a total bilirubin of 3, AST of 1027, ALP of 699 and alkaline phosphatase of 167. The patient denies any significant alcohol or tobacco use. Hepatitis panel has been negative. She reports 2 episodes of vomiting in association with the abdominal pain which was significant for regurgitation of food which she had eaten. She has had no further nausea or vomiting. Social history: Denies any tobacco or alcohol use. Denies any illicit drug use. Family history: Significant for kidney stones in the patient's mother. Review of Systems REVIEW OF SYSTEMS: CARDIOPULMONARY: Denies shortness of breath but does report chest pain in association with the abdominal pain which radiated to her back and is currently resolved. GENITOURINARY: No dysuria or hematuria. MUSCULOSKELETAL: No weakness reported. SKIN: Denies any new rashes or lesions, jaundice or pallor. PSYCHIATRIC: Denies any depression or anxiety. NEUROLOGY: Denies headache, denies any new focal deficits. EARS: No tinnitus, discharge or new hearing loss. NOSE: No discharge or congestion. EYES: No pain in eyes or change in vision. CONSTITUTIONAL: No recent weight loss. No fever, chills, night sweats. Past Medical History Past Medical History: Diabetes Mellitus, Hyperlipidemia, Hypertension Additional Past Medical History / Comment(s): BLOODY STOOLS-HGB 7.0 RECEIVED 2 UNITS [facility]-ADMITTED IN [facility] NOVEMBER 2014-STOOLS NOW ARE NORMAL BROWN History of Any Multi-Drug Resistant Organisms: None Reported Past Surgical History: Hysterectomy Additional Past Surgical History / Comment(s): CYST REMOVED BACK OF EAR Past Anesthesia/Blood Transfusion Reactions: No Reported Reaction Additional Past Anesthesia/Blood Transfusion Reaction / Comm: NO COMPLICATIONS Past Psychological History: No Psychological Hx Reported Smoking Status: Never smoker Past Alcohol Use History: None Reported Past Drug Use History: None Reported - Past Family History Mother Family Medical History: Renal Disease Additional Family Medical History / Comment(s): KIDNEY STONES Father Additional Family Medical History / Comment(s): UNK HX Medications and Allergies Home Medications Medication Instructions Recorded Confirmed Type Enalapril [Vasotec] 20 mg PO DAILY 07/10/17 04/09/18 History metFORMIN HCL ER [Glucophage Xr] 500 mg PO PC-SUPPER 07/10/17 04/09/18 History Ibuprofen 800 mg PO Q8H PRN 04/08/18 04/08/18 History Atorvastatin [Lipitor] 40 mg PO DAILY 04/09/18 04/09/18 History Fluticasone Nasal [place] [Flonase 2 spr EA NOSTRIL DAILY 04/09/18 04/09/18 History Nasal [place]] Allergies Allergy/AdvReac Type Severity Reaction Status Date / Time latex Allergy Rash/Hives Verified 04/09/18 09:58 Physical Exam Vitals: Vital Signs Temp Pulse Pulse Resp BP BP Pulse Ox 04/09/18 14:01 98.0 F 56 L 16 125/76 95 04/09/18 06:19 97.1 F L 52 L 17 88/46 98 04/08/18 22:34 97.1 F L 56 L 18 115/66 97 04/08/18 21:39 97.2 F L 52 L 16 98/54 97 04/08/18 20:17 97.4 F L 51 L 16 92/50 100 04/08/18 19:08 97.4 F L 54 L 16 100/50 97 04/08/18 18:03 55 L 18 114/59 97 Intake and Output 04/09/18 04/09/18 04/09/18 06:59 14:59 22:59 Intake Total 400 Output Total 100 Balance 300 Intake: Intake, IV Titration 400 Amount Sodium Chloride 0.9% 1, 400 000 ml @ 125 mls/hr IV . Q8H [facility] Rx#:[id number] Output: Urine 100 Other: Voiding Method Toilet # Voids 1 2 # Bowel Movements 0 On physical examination, patient appears comfortable in no apparent distress. HEAD: Normocephalic, atraumatic. EYES: No scleral icterus. No conjunctival injection. MOUTH: No lesions, tongue midline. NECK: Trachea midline, no gross abnormalities. CHEST: Clear to auscultation with no wheezing or rhonchi appreciated. HEART: Regular rate and rhythm. ABDOMEN: Soft, mildly tender to palpation in the epigastric region of her abdomen. Bowel sounds are positive. No organomegaly. No guarding or rigidity. EXTREMITIES: No pedal edema. SKIN: No rashes, no jaundice. NEUROLOGIC: Alert and oriented x3. No focal deficits. Results CBC & Chem 7: 04/09/18 14:05 04/09/18 14:05 Labs: Abnormal Lab Results - Last 24 Hours (Table) 04/08/18 04/08/18 04/08/18 Range/Units 17:05 17:05 17:05 Plt Count (150-450) k/uL APTT 20.3 L (22.0-30.0) sec D-Dimer (<0.60) mg/L FEU Chloride 109 H (98-107) mmol/L Carbon Dioxide (22-30) mmol/L BUN 18 H (7-17) mg/dL Glucose 143 H (74-99) mg/dL POC Glucose (mg/dL) (75-99) mg/dL Calcium (8.4-10.2) mg/dL Total Bilirubin 3.0 H (0.2-1.3) mg/dL AST 1027 H (14-36) U/L ALT 699 H (9-52) U/L Alkaline Phosphatase 167 H (38-126) U/L Total Protein (6.3-8.2) g/dL Albumin (3.5-5.0) g/dL Amylase 2122 H* (30-110) U/L Lipase >14813 H (23-300) U/L 04/08/18 04/09/18 04/09/18 Range/Units 17:05 14:05 14:05 Plt Count 103 L (150-450) k/uL APTT (22.0-30.0) sec D-Dimer 1.68 H (<0.60) mg/L FEU Chloride 114 H (98-107) mmol/L Carbon Dioxide 20 L (22-30) mmol/L BUN (7-17) mg/dL Glucose (74-99) mg/dL POC Glucose (mg/dL) (75-99) mg/dL Calcium 8.3 L (8.4-10.2) mg/dL Total Bilirubin 4.3 H (0.2-1.3) mg/dL AST 484 H (14-36) U/L ALT 634 H (9-52) U/L Alkaline Phosphatase 162 H (38-126) U/L Total Protein 5.8 L (6.3-8.2) g/dL Albumin 3.2 L (3.5-5.0) g/dL Amylase 263 H (30-110) U/L Lipase 1533 H (23-300) U/L 04/09/18 Range/Units 17:08 Plt Count (150-450) k/uL APTT (22.0-30.0) sec D-Dimer (<0.60) mg/L FEU Chloride (98-107) mmol/L Carbon Dioxide (22-30) mmol/L BUN (7-17) mg/dL Glucose (74-99) mg/dL POC Glucose (mg/dL) 71 L (75-99) mg/dL Calcium (8.4-10.2) mg/dL Total Bilirubin (0.2-1.3) mg/dL AST (14-36) U/L ALT (9-52) U/L Alkaline Phosphatase (38-126) U/L Total Protein (6.3-8.2) g/dL Albumin (3.5-5.0) g/dL Amylase (30-110) U/L Lipase (23-300) U/L CT scan - chest: report reviewed US - abdomen: report reviewed (No evidence of pulmonary embolism on CTA. Gallbladder not visualized on ultrasound.) Assessment and Plan (1) Acute pancreatitis Narrative/Plan: Patient presenting with abdominal pain radiating to her back and elevation in amylase and lipase consistent with acute pancreatitis. At this time given the patient's elevation in total bilirubin and transaminases is likely that the patient's pancreatitis has been caused by gallstones. Ultrasound was unable to visualize the gallbladder. Patient denies any smoking or alcohol use. No prior episodes. No other abnormalities seen on imaging. Current Visit: Yes Status: Acute Code(s): K85.90 - ACUTE PANCREATITIS WITHOUT NECROSIS OR INFECTION, UNSP SNOMED Code(s): 541679204 (2) Elevated liver enzymes Narrative/Plan: Secondary to above. Acute hepatitis panel negative. Current Visit: Yes Status: Acute Code(s): R74.8 - ABNORMAL LEVELS OF OTHER SERUM ENZYMES SNOMED Code(s): 343624802 Plan: Supportive care Nothing by mouth No signs of cholangitis at this time, will await MRCP. We'll plan on ERCP if patient develops signs or symptoms of cholangitis or if imaging is suggestive of choledocholithiasis. If this is not the case then would suggest laparoscopic cholecystectomy with IOC. Pain control Continue fluid hydration Follow liver chemistries Triglyceride level pending We'll continue to follow Thank you for allowing us to participate in the care of this patient
[2018-04-09] MEDS: LACTATED RINGERS 1,000 ML IV SCH (18:08)
--- NOTE | 2018-04-09 19:33 | CT ---
EXAMINATION TYPE: CT abdomen pelvis w con DATE OF EXAM: 04/09/2018 COMPARISON: 02/11/2010 HISTORY: Epigastric abdominal pain. CT DLP: 671.7 mGycm Automated exposure control for dose reduction was used. TECHNIQUE: Helical acquisition of images was performed from the lung bases through the pelvis. CONTRAST: Performed without Oral Contrast and with IV Contrast, patient injected with 120ml mL of Isovue 370. FINDINGS: There are small bilateral pleural effusions. Heart size is normal. There is no pericardial effusion. There is interstitial infiltrate and atelectasis at the posterior lung bases. Spleen is large and measures 13 cm. Liver appears normal. Bile ducts are not dilated. Gallbladder sli ghtly contracted with a 5 mm calcified gallstone. There is hysterectomy. There is no evidence of a pe lvic mass. There is no free fluid in the pelvis. There is no adrenal mass. Kidneys show satisfactory contrast opacification. There is no hydronephrosi s. There is no retroperitoneal adenopathy. Bladder distends smoothly. I see no intestinal wall thicke praveena. There are no dilated loops. There is apparent surgical clips from appendectomy. There is no asc ites. There is no sign of free air. IMPRESSION: CONTRACTED GALLBLADDER WITH SMALL CALCIFIED GALLSTONE. NO DILATED DUCTS. NO SIGN OF ACUTE ABNORMALITY WITHIN ABDOMEN AND PELVIS. SMALL NEW PLEURAL EFFUSIONS AND MINIMAL INTERSTITIAL INFILTRATE AND ATELE CTASIS AT THE LUNG BASES.
[2018-04-09 20:50] LABS: Glucose,Whole Blood 78 mg/dL (75-99)
--- NOTE | 2018-04-10 00:57 | MR ---
EXAMINATION TYPE: MR liver wo/w con and mrcp DATE OF EXAM: 04/09/2018 COMPARISON: HISTORY: CONTRAST: Standard multiplanar, multisequence MRI departmental protocol utilizing 7.5 mL intravenous gadolinium contrast. FINDINGS: Liver shows no focal defect. Spleen is top normal in size. Spleen measures 12.5 cm. There i s no hydronephrosis. Kidneys have normal size and contour. There is no evidence of a pancreatic mass. Pancreatic duct appears normal. The bile ducts are not dilated. There is no adrenal mass. There is n o ascites. There are small pleural effusions. The MRCP images show no dilated bile ducts. Common bile duct is 6 mm. Intrahepatic bile ducts appear normal. There is no evidence of a stricture. There are small low signal foci in the gallbladder consi stent with a few gallstones. Gallbladder wall is not thickened. The contrast images show no pathologic enhancement. There is no focal liver defect. Kidneys show sati sfactory contrast opacification. IMPRESSION: There is evidence of gallstones. No dilated ducts. Normal pancreas. No focal liver defect. Small pleural effusions.
[2018-04-10] MEDS: LACTATED RINGERS 1,000 ML IV SCH ×6 (01:16→23:35)
[2018-04-10 07:16] LABS: Glucose,Whole Blood 80 mg/dL (75-99)
[2018-04-10] MEDS: INSULIN ASPART 100 UNIT/ML 1 ML 10 ML VIAL SQ SCH ×4 (07:40→21:06)
[2018-04-10 08:05] LABS: ALT 613 U/L (9-52); AST 334 U/L (14-36); Albumin 3.8 g/dL (3.5-5.0); Alkaline Phosphatase 201 U/L (38-126); Amylase 97 U/L (30-110); Anion Gap 11 mmol/L; Blood Urea Nitrogen 10 mg/dL (7-17); Calcium 9.1 mg/dL (8.4-10.2); Carbon Dioxide 23 mmol/L (22-30); Chloride 106 mmol/L (98-107); Glucose 79 mg/dL (74-99); Lipase 227 U/L (23-300); Potassium 3.6 mmol/L (3.5-5.1); Sodium 140 mmol/L (137-145); Total Bilirubin 3.6 mg/dL (0.2-1.3); Total Protein 6.8 g/dL (6.3-8.2); Triglycerides 106 mg/dL (<150)
[2018-04-10 08:07] LABS: Basophils % (A) 0 %; Eosinophils # (A) 0.1 k/uL (0-0.7); Eosinophils % (A) 2 %; HCT 37.9 % (34.0-46.0); HGB 12.5 gm/dL (11.4-16.0); Lymphocytes % (A) 21 %; MCH 27.7 pg (25.0-35.0); MCHC 33.1 g/dL (31.0-37.0); MCV 83.5 fL (80.0-100.0); Mean Platelet Volume 9.1; Monocytes # (A) 0.3 k/uL (0-1.0); Monocytes % (A) 6 %; Neutrophils # (A) 3.3 k/uL (1.3-7.7); Neutrophils % (A) 69 %; RBC 4.53 m/uL (3.80-5.40); RDW 12.5 % (11.5-15.5); WBC 4.9 k/uL (3.8-10.6)
[2018-04-10] MEDS: PANTOPRAZOLE 40 MG/10 ML VIAL IV SCH ×2 (08:15→20:17)
[2018-04-10 09:01] LABS: Platelet Count 99 k/uL (150-450)
--- NOTE | 2018-04-10 10:04 | P.PN ---
<Yue Hdz - Last Filed: 04/10/18 09:58> Subjective Progress Note Date: 04/10/18 57-year-old seen this morning. GI service scheduling patient today MRCP lipase is down to 227 liver enzymes are trending down total bili down 3.6 CAT scan of the abdomen pelvis done yesterday reviewed the report contracted gallbladder with small gallstone no dilated ducts Objective - Vital Signs Vital signs: Vital Signs Temp 97.2 F L 04/10/18 06:04 Pulse 61 04/10/18 06:04 Resp 16 04/10/18 06:04 BP 149/67 04/10/18 06:04 Pulse Ox 97 04/10/18 06:04 Intake & Output 04/09/18 04/10/18 04/10/18 18:59 06:59 18:59 Intake Total 880 Output Total 200 Balance 680 Weight 70.307 kg Intake: Intake, IV Titration 400 Amount Sodium Chloride 0.9% 1, 400 000 ml @ 125 mls/hr IV . Q8H [facility] Rx#:[id number] Oral 480 Output: Urine 200 Other: Voiding Method Toilet # Voids 3 1 # Bowel Movements 0 - Exam Exam 57-year-old female awake sitting up in bed in no acute distress Lungs clear on room air Heart S1-S2 audible regular Abdomen diffuse tenderness the bilateral lower abdominal wall bowel sounds present no nausea no vomiting Extremities no edema - Labs CBC & Chem 7: 04/10/18 07:30 04/10/18 07:30 Labs: Abnormal Lab Results - Last 24 Hours (Table) 04/08/18 04/09/18 04/09/18 Range/Units 17:05 14:05 14:05 Plt Count 103 L (150-450) k/uL Chloride 114 H (98-107) mmol/L Carbon Dioxide 20 L (22-30) mmol/L POC Glucose (mg/dL) (75-99) mg/dL Hemoglobin A1c 6.1 H (4.0-6.0) % Calcium 8.3 L (8.4-10.2) mg/dL Total Bilirubin 4.3 H (0.2-1.3) mg/dL AST 484 H (14-36) U/L ALT 634 H (9-52) U/L Alkaline Phosphatase 162 H (38-126) U/L Total Protein 5.8 L (6.3-8.2) g/dL Albumin 3.2 L (3.5-5.0) g/dL Amylase 263 H (30-110) U/L Lipase 1533 H (23-300) U/L 04/09/18 04/10/18 04/10/18 Range/Units 17:08 07:30 07:30 Plt Count 99 L (150-450) k/uL Chloride (98-107) mmol/L Carbon Dioxide (22-30) mmol/L POC Glucose (mg/dL) 71 L (75-99) mg/dL Hemoglobin A1c (4.0-6.0) % Calcium (8.4-10.2) mg/dL Total Bilirubin 3.6 H (0.2-1.3) mg/dL AST 334 H (14-36) U/L ALT 613 H (9-52) U/L Alkaline Phosphatase 201 H (38-126) U/L Total Protein (6.3-8.2) g/dL Albumin (3.5-5.0) g/dL Amylase (30-110) U/L Lipase (23-300) U/L Assessment and Plan Assessment: Impression Present on admission mid epigastric pain suspect due to acute pancreatitis CAT scan of the chest no evidence of a pulmonary emboli Ultrasound of the gallbladder poor visualization common bile duct appeared to be within normal limits Present on admission nausea vomiting epigastric pain suspect due to pancreatitis Exposure to unknown cleaning agent recent Plan Continue workup per GI service defer to IV fluid hydration Pain control Monitor labs Further recommendations pending will follow with you The above impression and plan of care have been discussed and directed by signing physician. Yue Hdz nurse practitioner acting as scribe for signing physician. <Zaynab Veliz - Last Filed: 04/11/18 20:36> Objective - Vital Signs Vital signs: Vital Signs Temp 97.9 F 04/11/18 16:20 Pulse 57 L 04/11/18 16:44 Resp 16 04/11/18 16:44 BP 136/77 04/11/18 16:20 Pulse Ox 95 04/11/18 16:20 Intake & Output 04/11/18 04/11/18 04/12/18 06:59 18:59 06:59 Intake Total 600 Balance 600 Weight 70.307 kg Intake: Oral 600 Other: Voiding Method Toilet Toilet # Voids 1 1 - Labs CBC & Chem 7: 04/10/18 07:30 04/11/18 08:03 Labs: Abnormal Lab Results - Last 24 Hours (Table) 04/10/18 04/11/18 04/11/18 Range/Units 20:42 07:04 08:03 Glucose 112 H (74-99) mg/dL POC Glucose (mg/dL) 140 H 121 H (75-99) mg/dL Total Bilirubin 2.0 H (0.2-1.3) mg/dL AST 215 H (14-36) U/L ALT 468 H (9-52) U/L Alkaline Phosphatase 207 H (38-126) U/L
[2018-04-10 12:35] LABS: Glucose,Whole Blood 70 mg/dL (75-99)
[2018-04-10 17:14] LABS: Glucose,Whole Blood 191 mg/dL (75-99)
[2018-04-10 20:58] LABS: Glucose,Whole Blood 140 mg/dL (75-99)
[2018-04-10] MEDS: ONDANSETRON 4 MG/2 ML VIAL IVP PRN (22:50)
[2018-04-10] MEDS: HYDROmorphone 1 MG/ML 1 ML SYRINGE IVP PRN (22:51)
--- NOTE | 2018-04-10 22:56 | PN ---
PROGRESS NOTE DATE OF SERVICE: 04/10/2018. PRESENTING COMPLAINT: Abdominal pain. INTERVAL HISTORY: Patient presented with acute severe pancreatitis and possible obstructive hepatitis. Imaging did show gallstones and a contracted gallbladder with no dilation of common bile duct. The patient may have passed the stone. Today, the patient's abdominal pain is greatly improved. The patient is actually tolerating a diet. No fever. No nausea, vomiting. REVIEW OF SYSTEMS: Done for constitutional, cardiovascular, GI, pulmonary; relevant findings above. CURRENT MEDICATIONS: Reviewed that include IV fluids. EXAMINATION: Temperature 98.2, pulse 79, respirations 18, blood pressure 150/83, pulse ox 99% on room air. GENERAL APPEARANCE: Sitting up, comfortable, having a meal. EYES: Pupils equal. Conjunctivae normal. HEENT: External appearance of nose and ears normal. Oral cavity normal. NECK: JVD not raised. Mass not palpable. RESPIRATORY: Effort normal. Lungs are clear. CARDIOVASCULAR: First and second heart sounds normal. No edema. ABDOMEN: Soft, nontender. Liver and spleen not palpable. PSYCHIATRY: Alert and oriented x3. Mood and affect normal. INVESTIGATIONS: White count 4.9, hemoglobin 12.9. Potassium 3.6. AST 334, ALT 613. Amylase and lipase are normal. Bilirubin 3.6. ASSESSMENT: 1. Possible acute gallstone pancreatitis associated with hepatitis from the same. Clinically, the patient may have passed a stone. There are more stones in the gallbladder and definitely this will need to come out down the road. If patient clinically continues to improve, the patient may undergo cholecystectomy and/or endoscopic retrograde cholangiopancreatography and/or intraoperative cholangiogram. 2. Diabetes mellitus type 2 on oral hypoglycemic. 3. Essential hypertension. 4. Hyperlipidemia. PLAN: Care was discussed with the patient at length. Follow with Dr. Larson to make the final determination. MMODL / IJN: [id number] /
--- NOTE | 2018-04-10 23:48 | P.PN ---
Subjective Progress Note Date: 04/10/18 Principal diagnosis: Abdominal pain, elevated liver enzymes, pancreatitis The patient reports that she has had no further abdominal pain. She reports a normal bowel movement. She is asking for diet. No nausea or vomiting. Objective - Vital Signs Vital signs: Vital Signs Temp 98.2 F 04/10/18 15:00 Pulse 59 L 04/10/18 15:00 Resp 18 04/10/18 15:00 BP 150/83 04/10/18 15:00 Pulse Ox 99 04/10/18 15:00 Intake & Output 04/10/18 04/10/18 04/11/18 06:59 18:59 06:59 Intake Total 1600 Output Total 100 Balance 1500 Weight 70.307 kg Intake: Intake, IV Titration 1600 Amount Lactated Ringers 1,000 ml 1600 @ 50 mls/hr IV .Q20H [facility] Rx#:[id number] Output: Urine 100 Other: Voiding Method Toilet Toilet # Voids 1 3 # Bowel Movements 1 - Exam Constitutional: Lying in bed in no apparent distress Head: normocephalic/atraumatic Eyes: No icterus, no injection Mouth: Moist mucous membranes Nose: No discharge noted Neck: Trachea midline Lungs: Normal air entry in all lung herring, no wheezing appreciated Abdomen: Soft, nontender, nondistended, normal bowel sounds. No guarding or rigidity Skin: No rashes, no jaundice Neuro: Awake alert and oriented 3, no focal deficits - Labs CBC & Chem 7: 04/10/18 07:30 04/10/18 07:30 Labs: Abnormal Lab Results - Last 24 Hours (Table) 04/08/18 04/10/18 04/10/18 Range/Units 17:05 07:30 07:30 Plt Count 99 L (150-450) k/uL POC Glucose (mg/dL) (75-99) mg/dL Hemoglobin A1c 6.1 H (4.0-6.0) % Total Bilirubin 3.6 H (0.2-1.3) mg/dL AST 334 H (14-36) U/L ALT 613 H (9-52) U/L Alkaline Phosphatase 201 H (38-126) U/L 04/10/18 04/10/18 04/10/18 Range/Units 12:29 17:08 20:42 Plt Count (150-450) k/uL POC Glucose (mg/dL) 70 L 191 H 140 H (75-99) mg/dL Hemoglobin A1c (4.0-6.0) % Total Bilirubin (0.2-1.3) mg/dL AST (14-36) U/L ALT (9-52) U/L Alkaline Phosphatase (38-126) U/L Assessment and Plan (1) Acute pancreatitis Narrative/Plan: Patient presenting with abdominal pain radiating to her back and elevation in amylase and lipase consistent with acute pancreatitis. At this time given the patient's elevation in total bilirubin and transaminases is likely that the patient's pancreatitis has been caused by gallstones. Ultrasound was unable to visualize the gallbladder. Patient denies any smoking or alcohol use. MRCP performed with no evidence of ductal dilation or choledocholithiasis. Current Visit: Yes Status: Acute Code(s): K85.90 - ACUTE PANCREATITIS WITHOUT NECROSIS OR INFECTION, UNSP SNOMED Code(s): 653552900 (2) Elevated liver enzymes Narrative/Plan: Secondary to above. Acute hepatitis panel negative. Current Visit: Yes Status: Acute Code(s): R74.8 - ABNORMAL LEVELS OF OTHER SERUM ENZYMES SNOMED Code(s): 437710608 Plan: Supportive care Okay for diet, nothing by mouth after midnight in case of change in patient's condition No evidence of ductal dilation or choledocholithiasis on MRCP. We will follow liver enzymes more morning and if continue to trend down would suggest suggest laparoscopic cholecystectomy with IOC to be scheduled by surgical service. Pain control Continue fluid hydration Follow liver chemistries Triglyceride level pending We'll continue to follow Thank you for allowing us to participate in the care of this patient
[2018-04-11 07:07] LABS: Glucose,Whole Blood 121 mg/dL (75-99)
[2018-04-11] MEDS: INSULIN ASPART 100 UNIT/ML 1 ML 10 ML VIAL SQ SCH ×4 (08:52→21:55)
[2018-04-11] MEDS: PANTOPRAZOLE 40 MG/10 ML VIAL IV SCH ×2 (08:56→21:26)
[2018-04-11 09:03] LABS: ALT 468 U/L (9-52); AST 215 U/L (14-36); Albumin 3.7 g/dL (3.5-5.0); Alkaline Phosphatase 207 U/L (38-126); Anion Gap 7 mmol/L; Blood Urea Nitrogen 13 mg/dL (7-17); Calcium 8.9 mg/dL (8.4-10.2); Carbon Dioxide 29 mmol/L (22-30); Chloride 104 mmol/L (98-107); Glucose 112 mg/dL (74-99); Potassium 3.5 mmol/L (3.5-5.1); Sodium 140 mmol/L (137-145); Total Protein 6.5 g/dL (6.3-8.2)
--- NOTE | 2018-04-11 11:47 | P.PN ---
<Yue Hdz - Last Filed: 04/11/18 12:52> Subjective Progress Note Date: 04/11/18 57-year-old female resting in bed patient had an episode last evening of having abdominal pain diffuse across the lower abdomen with a nausea sensation with dry heaves. Currently this morning patient is indicating abdominal pain is improved is asking for "coffee to drink" did note that the MRCP done showed no dilated common bile duct. Or cholelithiasis Liver enzymes are trending down. Objective - Vital Signs Vital signs: Vital Signs Temp 97.6 F 04/11/18 07:02 Pulse 53 L 04/11/18 07:02 Resp 16 04/11/18 07:02 BP 107/72 04/11/18 07:02 Pulse Ox 95 04/11/18 07:02 Intake & Output 04/10/18 04/11/18 04/11/18 18:59 06:59 18:59 Intake Total 1600 Output Total 100 Balance 1500 Weight 70.307 kg 70.307 kg Intake: Intake, IV Titration 1600 Amount Lactated Ringers 1,000 ml 1600 @ 50 mls/hr IV .Q20H [facility] Rx#:[id number] Output: Urine 100 Other: Voiding Method Toilet Toilet Toilet # Voids 3 1 # Bowel Movements 1 - Exam Physical exam 57-year-old female resting in bed currently asking for a diet Lungs clear adequate air movement on room air heart S1-S2 audible regular Abdomen soft no facial grimacing with palpitation to the abdominal wall bowel tones present had a bowel movement yesterday reports no nausea vomiting states abdominal pain improved bowel tones present Extremities no edema - Labs CBC & Chem 7: 04/10/18 07:30 04/11/18 08:03 Labs: Abnormal Lab Results - Last 24 Hours (Table) 04/10/18 04/10/18 04/10/18 Range/Units 12:29 17:08 20:42 Glucose (74-99) mg/dL POC Glucose (mg/dL) 70 L 191 H 140 H (75-99) mg/dL Total Bilirubin (0.2-1.3) mg/dL AST (14-36) U/L ALT (9-52) U/L Alkaline Phosphatase (38-126) U/L 04/11/18 04/11/18 Range/Units 07:04 08:03 Glucose 112 H (74-99) mg/dL POC Glucose (mg/dL) 121 H (75-99) mg/dL Total Bilirubin 2.0 H (0.2-1.3) mg/dL AST 215 H (14-36) U/L ALT 468 H (9-52) U/L Alkaline Phosphatase 207 H (38-126) U/L Assessment and Plan Assessment: Impression Present on admission mid epigastric pain suspect due to acute pancreatitis likely due to gallstones CAT scan of the chest no evidence of a pulmonary emboli Ultrasound of the gallbladder poor visualization common bile duct appeared to be within normal limits Present on admission nausea vomiting epigastric pain suspect due to pancreatitis likely due to gallstones Exposure to unknown cleaning agent recent MRCP showed no evidence of ductal dilatation or cholelithiasis Plan Clear liquid diet nothing by mouth after midnight Tomorrow for a lap cholecystectomy robotic per Dr. Veliz Update spouse at the bedside IV fluid hydration Pain control Monitor labs Further recommendations pending will follow with you The above impression and plan of care have been discussed and directed by signing physician. Yue Hzd nurse practitioner acting as scribe for signing physician. <Zaynab Veliz N - Last Filed: 04/11/18 20:36> Objective - Vital Signs Vital signs: Vital Signs Temp 97.9 F 04/11/18 16:20 Pulse 57 L 04/11/18 16:44 Resp 16 04/11/18 16:44 BP 136/77 04/11/18 16:20 Pulse Ox 95 04/11/18 16:20 Intake & Output 04/11/18 04/11/18 04/12/18 06:59 18:59 06:59 Intake Total 600 Balance 600 Weight 70.307 kg Intake: Oral 600 Other: Voiding Method Toilet Toilet # Voids 1 1 - Labs CBC & Chem 7: 04/10/18 07:30 04/11/18 08:03 Labs: Abnormal Lab Results - Last 24 Hours (Table) 04/10/18 04/11/18 04/11/18 Range/Units 20:42 07:04 08:03 Glucose 112 H (74-99) mg/dL POC Glucose (mg/dL) 140 H 121 H (75-99) mg/dL Total Bilirubin 2.0 H (0.2-1.3) mg/dL AST 215 H (14-36) U/L ALT 468 H (9-52) U/L Alkaline Phosphatase 207 H (38-126) U/L
[2018-04-11 11:58] LABS: Glucose,Whole Blood 95 mg/dL (75-99)
[2018-04-11 16:47] LABS: Glucose,Whole Blood 85 mg/dL (75-99)
--- NOTE | 2018-04-11 20:37 | P.PN ---
Progress Note - Text Progress Note Date: 04/11/18 Patient seen and evaluated. Her was at bedside. Surgical intervention for cholecystectomy is requested by primary team. Patient has symptomatic gallstone pancreatitis. Benefits and risks of robotic cholecystectomy described. Perioperative care including postoperative care reviewed. Patient and agreed to proceed with surgery. Patient scheduled for surgery tomorrow.
[2018-04-11 21:15] LABS: Glucose,Whole Blood 159 mg/dL (75-99)
[2018-04-11] MEDS: LACTATED RINGERS 1,000 ML IV SCH (21:55)
--- NOTE | 2018-04-11 23:54 | P.PN ---
Subjective Progress Note Date: 04/11/18 Principal diagnosis: Abdominal pain, elevated liver enzymes, pancreatitis The patient reports that she has had no further abdominal pain. She reports a normal bowel movement. She is tolerating her diet. No nausea or vomiting. Objective - Vital Signs Vital signs: Vital Signs Temp 97.9 F 04/11/18 16:20 Pulse 57 L 04/11/18 16:44 Resp 16 04/11/18 16:44 BP 136/77 04/11/18 16:20 Pulse Ox 95 04/11/18 16:20 Intake & Output 04/11/18 04/11/18 04/12/18 06:59 18:59 06:59 Intake Total 600 Balance 600 Weight 70.307 kg Intake: Oral 600 Other: Voiding Method Toilet Toilet # Voids 1 1 - Exam Constitutional: Lying in bed in no apparent distress Head: normocephalic/atraumatic Eyes: No icterus, no injection Mouth: Moist mucous membranes Nose: No discharge noted Neck: Trachea midline Lungs: Normal air entry in all lung herring, no wheezing appreciated Abdomen: Soft, nontender, nondistended, normal bowel sounds. No guarding or rigidity Skin: No rashes, no jaundice Neuro: Awake alert and oriented 3, no focal deficits - Labs CBC & Chem 7: 04/10/18 07:30 04/11/18 08:03 Labs: Abnormal Lab Results - Last 24 Hours (Table) 04/11/18 04/11/18 04/11/18 Range/Units 07:04 08:03 21:11 Glucose 112 H (74-99) mg/dL POC Glucose (mg/dL) 121 H 159 H (75-99) mg/dL Total Bilirubin 2.0 H (0.2-1.3) mg/dL AST 215 H (14-36) U/L ALT 468 H (9-52) U/L Alkaline Phosphatase 207 H (38-126) U/L Assessment and Plan (1) Acute pancreatitis Narrative/Plan: Patient presenting with abdominal pain radiating to her back and elevation in amylase and lipase consistent with acute pancreatitis. At this time given the patient's elevation in total bilirubin and transaminases is likely that the patient's pancreatitis has been caused by gallstones. Ultrasound was unable to visualize the gallbladder. Patient denies any smoking or alcohol use. MRCP performed with no evidence of ductal dilation or choledocholithiasis. Current Visit: Yes Status: Acute Code(s): K85.90 - ACUTE PANCREATITIS WITHOUT NECROSIS OR INFECTION, UNSP SNOMED Code(s): 531410369 (2) Elevated liver enzymes Narrative/Plan: Secondary to above. Acute hepatitis panel negative. Current Visit: Yes Status: Acute Code(s): R74.8 - ABNORMAL LEVELS OF OTHER SERUM ENZYMES SNOMED Code(s): 414567399 Plan: Supportive care Okay for diet, nothing by mouth after midnight in case of change in patient's condition No evidence of ductal dilation or choledocholithiasis on MRCP. We will follow liver enzymes more morning and if continue to trend down would suggest suggest laparoscopic cholecystectomy with IOC to be scheduled by surgical service. Current plan is for surgical intervention tomorrow. Pain control Continue fluid hydration Follow liver chemistries Triglyceride level pending Gastroenterology will stand by Thank you for allowing us to participate in the care of this patient
[2018-04-12] MEDS: ENOXAPARIN 40 MG/0.4 ML SYRINGE SQ SCH ×2 (01:00→07:16)
--- NOTE | 2018-04-12 05:18 | PN ---
PROGRESS NOTE DATE OF SERVICE: 04/11/2018. PRESENTING COMPLAINT: Abdominal pain. INTERVAL HISTORY: Patient with acute severe gallstone pancreatitis and obstructive hepatitis. The patient is feeling much better. The patient will be scheduled for cholecystectomy tomorrow. Pancreatic enzymes have come down. No abdominal pain. No nausea, vomiting. REVIEW OF SYSTEMS: Done for constitutional, cardiovascular, GI, pulmonary; relevant findings as above. CURRENT MEDICATIONS: Current medications are reviewed and include IV fluids. PHYSICAL EXAMINATION: On examination, temperature 97, pulse 58, respiration 16, blood pressure 134/79, pulse ox 98% on room air. GENERAL APPEARANCE: Sitting up, comfortable. EYES: Pupils equal, conjunctivae normal. HENT: External appearance of nose and ears normal. Oral cavity normal. NECK: JVD not raised. Mass not palpable. RESPIRATORY: Effort . Lungs are clear. CARDIOVASCULAR: First and second sounds normal. No edema. ABDOMEN: Soft, nontender. Liver and spleen not palpable. PSYCHIATRY: Alert and oriented x3. Mood and affect normal. INVESTIGATIONS: AST 215, ALT 468. ASSESSMENT: 1. Acute gallstone pancreatitis with obstructive hepatitis with chemical and biochemical improvement. 2. Diabetes mellitus type 2 on oral hypoglycemic. 3. Essential hypertension. 4. Hyperlipidemia. PLAN: Patient will proceed with a cholecystectomy tomorrow. Care was discussed with the patient. MMODL / IJN: [id number] /
[2018-04-12 07:04] LABS: Glucose,Whole Blood 112 mg/dL (75-99)
[2018-04-12] MEDS: INSULIN ASPART 100 UNIT/ML 1 ML 10 ML VIAL SQ SCH ×4 (07:16→21:28)
[2018-04-12 08:39] LABS: ALT 388 U/L (9-52); AST 126 U/L (14-36); Albumin 3.9 g/dL (3.5-5.0); Alkaline Phosphatase 191 U/L (38-126); Anion Gap 10 mmol/L; Blood Urea Nitrogen 8 mg/dL (7-17); Calcium 9.4 mg/dL (8.4-10.2); Carbon Dioxide 27 mmol/L (22-30); Chloride 105 mmol/L (98-107); Glucose 114 mg/dL (74-99); Potassium 3.6 mmol/L (3.5-5.1); Sodium 142 mmol/L (137-145); Total Bilirubin 1.9 mg/dL (0.2-1.3)
[2018-04-12] MEDS: LACTATED RINGERS 1,000 ML IV SCH (11:36)
[2018-04-12 11:54] LABS: Glucose,Whole Blood 99 mg/dL (75-99)
[2018-04-12 14:24] VITALS: BMI 28.3
[2018-04-12] MEDS ORDERED: IV FLUID CONTINUATION 1,000 ML IV ONE (15:26)
[2018-04-12] MEDS ORDERED: ceFAZolin IN SWFI 2 GM/20 ML SYRINGE IVP ONE (15:32)
--- NOTE | 2018-04-12 15:34 | P.HPADDEND ---
H&P Addendum H&P Addendum Date: 04/12/18 Patient presents with gallstone-induced pancreatitis. LFTs improving. Will proceed with cholecystectomy
[2018-04-12] MEDS ORDERED: INDOCYANINE GREEN 25 MG VIAL IV STA (15:35)
[2018-04-12] MEDS: ONDANSETRON 4 MG/2 ML VIAL IVP PRN (15:37)
[2018-04-12] MEDS ORDERED: BUPIVACAIN-EPI 0.5%-1:200,000 30 ML VIAL SQ ONE (16:01)
[2018-04-12] MEDS ORDERED: MIDAZOLAM 2 MG/2 ML VIAL ONE (16:03)
[2018-04-12] MEDS ORDERED: GLYCOPYRROLATE 0.2 MG/ML 2 ML VIAL ONE (16:03)
[2018-04-12] MEDS ORDERED: ROCURONIUM BROMIDE 10 MG/ML 10 ML VIAL IV ONE (16:03)
[2018-04-12] MEDS ORDERED: SUCCINYLCHOLINE CHLORIDE 100 MG/5 ML SYR IV ONE (16:03)
[2018-04-12] MEDS ORDERED: NEOSTIGMINE 1 MG/ML 10 ML VIAL ONE (16:03)
[2018-04-12] MEDS ORDERED: LIDOCAINE 1% INJ 10MG/ML (20 ML MDV) ONE (16:03)
[2018-04-12] MEDS ORDERED: fentaNYL (PF) 50 MCG/ML 2 ML AMP ONE (16:03)
[2018-04-12] MEDS ORDERED: PROPOFOL 10 MG/ML 20 ML VIAL IV ONE (16:03)
[2018-04-12] MEDS ORDERED: KETOROLAC 30 MG/ML 1 ML VIAL ONE (16:03)
[2018-04-12] MEDS ORDERED: HYDROmorphone 1 MG/ML 1 ML SYRINGE IVP PRN (17:02)
--- NOTE | 2018-04-12 17:02 | P.OP ---
Date of Procedure: 04/12/18 Description of Procedure: SURGEON: RAIZA KENNY MD PREOPERATIVE DIAGNOSES: 1. Symptomatic gallstones 2. Gallstone pancreatitis 3. Elevated liver enzymes 4. Suspected choledocholithiasis POSTOPERATIVE DIAGNOSES: 1. Symptomatic gallstones 2. Gallstone pancreatitis 3. Elevated liver enzymes 4. Suspected choledocholithiasis OPERATION: Robotic-assisted da John Xi laparoscopic cholecystectomy, multiport with FIREFLY ESTIMATED BLOOD LOSS: 5 mL. SPECIMENS REMOVED: Gallbladder. COMPLICATIONS: None. OPERATIVE FINDINGS: 1. Chronic cholecystitis INDICATIONS: The patient is a 57-year-old female who presents with cholelcystitis. Surgical intervention with a laparoscopic cholecystectomy was described at length including injury to the biliary tree, bleeding, infection, need for further surgery. Informed consent was obtained. Robotic assisted laparoscopic approach was described. Benefits and risks of the procedure including but not limited to bleeding, infection, injury to the biliary tree was described. Informed consent was obtained. DESCRIPTION OF PROCEDURE: Patient was brought to the operating room, placed in supine position. After general induction, the abdomen had been prepped and draped in standard sterile fashion. The robotic da John XI system was primed. After a timeout protocol was performed, the patient had been prepped and draped in standard sterile fashion. The patient was injected with indocyanine green. A 5 mm 0 degrees laparoscopic trocar entry was performed along the left upper quadrant. The abdomen insufflated to 15 mmHg pressure which she tolerated well. Diagnostic laparoscopy demonstrated no injury to bowel viscera or mesentery. The liver surface was unremarkable. Next, two 8 mm robotic ports were placed along the right upper abdomen. The camera 8-mm port was maintained along the epigastrium. Another 8 mm port was placed along the left upper abdominal wall after exchanging the 5 mm port. Please note that the ports were placed at least 10 to 15 cm away from the target anatomy of the gallbladder. The robot was docked along the left lateral abdomen. The patient was repositioned in reverse Trendelenburg position. Using a grasper for arm 3, a grasper for arm 4, including hook cautery for arm 1 , the robotic system was docked and primed as described. Instruments were interchanged by the clinic office assistant including hook cautery, Bovie cautery and clip appliers. I had sat at the console. The common bile duct was not dilated. The cystic duct was unremarkable in appearance. Using FIREFLY, the common bile duct was well illuminated. The gallbladder fundus was retracted over the dome of the liver. Initial attention was brought to the infundibulum which was gently retracted in the inferior lateral approach. Using a grasper, the cystic duct including the cystic artery was carefully skeletonized. FIREFLY was used to identify the cystic artery and cystic structures. Large PLASTIC clips were used throughout the entire case. Using a clip business support coordinator 2 clips were placed proximally, and 1 clip was placed distally along the cystic duct and then cauterized with the cautery. Again care was taken to avoid any injury to the biliary tree as the common bile duct was clearly visualized during this portion of dissection. Next, the cystic artery was similarly clipped and cauterized. Electro-Bovie cautery was used to remove the gallbladder from the hepatic fossa. Hemostasis was checked and found to be adequate. The robot was undocked. I re-scrubbed into the case. Using a 10 mm Endo Catch bag via the left upper quadrant incision, the specimen was removed from the abdominal cavity. All pneumoperitoneum instruments were evacuated from the abdominal cavity. The incisions were reapproximated using 4-0 Monocryl in an interrupted subcuticular fashion. Fascial defects were less than 8 mm in size. Please note along the trocar sites, local anesthetic was placed as a field block prior to insertion of all instruments. Liquid glue was applied to the skin. At the end of the procedure needle, sponge, and instrument count had been verified correct by the lighting technician. The patient was transferred to postanesthesia care unit in stable condition. Intraoperative films were shared with the patient's family who were very pleased with the level of care. Console time 11 minutes
[2018-04-12] MEDS ORDERED: HYDROmorphone 1 MG/ML 1 ML SYRINGE IVP ONE ×3 (17:20→17:40)
[2018-04-12 18:08] LABS: Glucose,Whole Blood 113 mg/dL (75-99)
[2018-04-12 21:34] LABS: Glucose,Whole Blood 90 mg/dL (75-99)
[2018-04-13 07:15] LABS: Glucose,Whole Blood 84 mg/dL (75-99)
--- NOTE | 2018-04-13 07:35 | PN ---
PROGRESS NOTE DATE OF SERVICE: 04/12/2018 PRESENT COMPLAINT: Abdominal pain. INTERVAL HISTORY: This patient presented with acute severe gallstone pancreatitis and obstructive hepatitis. The patient did undergo cholecystectomy today. Post procedure patient is a bit lethargic but arousable. Started on a liquid diet. Pain is controlled. Otherwise feeling well. REVIEW OF SYSTEMS: Done for constitutional, cardiovascular, GI, pulmonary and relevant findings as above. CURRENT MEDICATIONS: Reviewed that include IV fluids. PHYSICAL EXAMINATION: VITAL SIGNS: Temperature 97.5, pulse 89, respiration 14, blood pressure 109/69, pulse ox 100 percent on 2 L. GENERAL APPEARANCE: Lethargic but arousable. EYES: Pupils are equal. Conjunctivae normal. HEENT: External appearance of nose and ears normal. Oral cavity normal. NECK: JVD not raised. Mass not palpable. RESPIRATORY: Effort normal. LUNGS: Clear. CARDIOVASCULAR: 1st and 2nd sounds normal. No edema. ABDOMEN: Mild tenderness, soft. Liver and spleen not palpable. PSYCHIATRY: Lethargic but arousable. INVESTIGATIONS: Potassium 3.6. AST 126, ALT 388. ASSESSMENT: 1. Acute gallstone pancreatitis with obstructive hepatitis with clinical improvement. 2. Cholecystectomy done by Dr. Veliz. 3. Diabetes mellitus type 2 on oral hypoglycemics. 4. Essential hypertension. 5. Hyperlipidemia. PLAN: Diet will be advanced per Surgery. Otherwise patient doing well. Continue with IV fluids. Hopefully can discharge tomorrow if remains stable. MMODL / IJN: [id number] /
[2018-04-13 07:52] LABS: HGB 12.3 gm/dL (11.4-16.0); MCH 28.3 pg (25.0-35.0); MCHC 32.4 g/dL (31.0-37.0); MCV 87.5 fL (80.0-100.0); Mean Platelet Volume 8.6; Platelet Count 114 k/uL (150-450); RBC 4.34 m/uL (3.80-5.40); RDW 12.9 % (11.5-15.5)
[2018-04-13] MEDS: INSULIN ASPART 100 UNIT/ML 1 ML 10 ML VIAL SQ SCH ×2 (07:52→11:45)
[2018-04-13] MEDS: ENOXAPARIN 40 MG/0.4 ML SYRINGE SQ SCH (08:00)
[2018-04-13] MEDS: HYDROmorphone 1 MG/ML 1 ML SYRINGE IVP PRN (08:00)
[2018-04-13 08:02] LABS: ALT 260 U/L (9-52); AST 92 U/L (14-36); Albumin 3.4 g/dL (3.5-5.0); Alkaline Phosphatase 153 U/L (38-126); Anion Gap 7 mmol/L; Blood Urea Nitrogen 13 mg/dL (7-17); Calcium 9.1 mg/dL (8.4-10.2); Carbon Dioxide 27 mmol/L (22-30); Chloride 106 mmol/L (98-107); Glucose 85 mg/dL (74-99); Potassium 3.8 mmol/L (3.5-5.1); Sodium 140 mmol/L (137-145); Total Bilirubin 1.8 mg/dL (0.2-1.3); Total Protein 6.2 g/dL (6.3-8.2)
[2018-04-13] MEDS ORDERED: HYDROcodone/APAP 5-325MG 1 EACH TAB PO PRN (11:00)
--- NOTE | 2018-04-13 11:13 | P.PN ---
<Yue Hdz - Last Filed: 04/13/18 11:14> Subjective Progress Note Date: 04/13/18 57-year-old female sitting up in bed surgical incision sites dry abdomen surgical tenderness appropriate nondistended passing gas active bowel tones reports no nausea vomiting pain medication effective for pain control. Liver enzymes trending down Robotic-assisted da John Xi laparoscopic cholecystectomy, multiport with FIREFLY done on May 13 Objective - Vital Signs Vital signs: Vital Signs Temp 98.1 F 04/13/18 06:00 Pulse 49 L 04/13/18 06:00 Resp 20 04/13/18 06:00 BP 113/70 04/13/18 06:00 Pulse Ox 99 04/13/18 06:00 Intake & Output 04/12/18 04/13/18 04/13/18 18:59 06:59 18:59 Intake Total 825 300 Output Total 5 Balance 820 300 Weight 70.307 kg Intake: IV 825 Oral 300 Output: Estimated Blood Loss 5 Other: Voiding Method Toilet Toilet # Voids 2 0 1 # Bowel Movements 0 0 - Exam Physical exam 57-year-old female resting in bed currently Lungs clear adequate air movement on room air heart S1-S2 audible regular Abdomen soft surgical tenderness appropriate nondistended bowel tones present tolerating diet no nausea no vomiting states urinating no difficulty Extremities no edema - Labs CBC & Chem 7: 04/13/18 07:12 04/13/18 07:12 Labs: Abnormal Lab Results - Last 24 Hours (Table) 04/12/18 04/13/18 04/13/18 Range/Units 18:05 07:12 07:12 Plt Count 114 L (150-450) k/uL POC Glucose (mg/dL) 113 H (75-99) mg/dL Total Bilirubin 1.8 H (0.2-1.3) mg/dL AST 92 H (14-36) U/L ALT 260 H (9-52) U/L Alkaline Phosphatase 153 H (38-126) U/L Total Protein 6.2 L (6.3-8.2) g/dL Albumin 3.4 L (3.5-5.0) g/dL Assessment and Plan Assessment: Impression Present on admission mid epigastric pain suspect due to acute pancreatitis likely due to gallstones CAT scan of the chest no evidence of a pulmonary emboli Ultrasound of the gallbladder poor visualization common bile duct appeared to be within normal limits Present on admission nausea vomiting epigastric pain suspect due to pancreatitis likely due to gallstones Exposure to unknown cleaning agent recent MRCP showed no evidence of ductal dilatation or cholelithiasis Plan Advance diet as tolerated Continue postop surgical care From a surgical perspective okay to discharge today defer to the timing to the attending [place] prescription provided did complete opiate teaching record No further surgical recommendations The above impression and plan of care have been discussed and directed by signing physician. Yue Hdz nurse practitioner acting as scribe for signing physician. <Zaynab Veliz N - Last Filed: 04/13/18 19:27> Objective - Vital Signs Vital signs: Vital Signs Temp 98.4 F 04/13/18 15:02 Pulse 52 L 04/13/18 15:02 Resp 18 04/13/18 15:02 BP 136/74 04/13/18 15:02 Pulse Ox 96 04/13/18 15:02 Intake & Output 04/13/18 04/13/18 04/14/18 06:59 18:59 06:59 Intake Total 300 Balance 300 Intake: Oral 300 Other: Voiding Method Toilet # Voids 0 1 # Bowel Movements 0 - Labs CBC & Chem 7: 04/13/18 07:12 04/13/18 07:12 Labs: Abnormal Lab Results - Last 24 Hours (Table) 04/13/18 04/13/18 Range/Units 07:12 07:12 Plt Count 114 L (150-450) k/uL Total Bilirubin 1.8 H (0.2-1.3) mg/dL AST 92 H (14-36) U/L ALT 260 H (9-52) U/L Alkaline Phosphatase 153 H (38-126) U/L Total Protein 6.2 L (6.3-8.2) g/dL Albumin 3.4 L (3.5-5.0) g/dL
[2018-04-13 11:24] LABS: Glucose,Whole Blood 81 mg/dL (75-99)
[2018-04-13] MEDS: LACTATED RINGERS 1,000 ML IV SCH (11:45)
[2018-04-13 15:47] VITALS: BP 136/74; PULSE 52; RESP 18; TEMP 98.4
--- NOTE | 2018-04-15 05:42 | DS ---
DISCHARGE SUMMARY DATE OF ADMISSION: 04/08/18 DATE OF DISCHARGE: 04/13/18 FINAL DIAGNOSES: 1. Acute gallstone pancreatitis with obstructive hepatitis. 2. Diabetes mellitus type 2 on oral hypoglycemic. 3. Essential hypertension. 4. Hyperlipidemia. PROCEDURE: Laparoscopic cholecystectomy by Dr. Veliz. CONSULTATION: 1. Dr. Veliz from General Surgery. 2. Dr. Larson from GI. HOSPITAL COURSE: The patient presented with increasing abdominal pain, nausea, vomiting. The patient is found to have severe pancreatitis and obstructive hepatitis. The patient's numbers eventually settled down and the patient eventually was taken for a cholecystectomy by Dr. Veliz. On the day of discharge, doing well. Abdominal pain greatly improved. Tolerating a diet. EXAMINATION: Afebrile, pulse 52, blood pressure 136/74. ABDOMEN: Soft, minimally tender. LUNGS: Clear. DISCHARGE MEDICATIONS: 1. Glucophage XR 500 mg with supper. 2. Flonase 2 sprays each nostril daily. 3. [place] 5 one tablet q.4h p.r.n. FOLLOWUP: Follow up with Dr. Veliz 04/17/18. Follow up with Rachel Esteban 04/17/18. CMP on 04/17/18. DIET: Soft, bland. MMODL / IJN: [id number] /
== END 2018-04-13 15:02 | disposition home or self-care (01) | DRG 418 ==
LOC: EC 16:24 → 4MS4W 20:36
PROVIDERS: ADMIT Hospitalist; ATTEND Hospitalist
PROC: 8E0W4CZ Robotic Assisted Procedure of Trunk Region, Percutaneous Endoscopic Approach (ICD-10-PCS; 2018-04-12)
PROC: 0FT44ZZ Resection of Gallbladder, Percutaneous Endoscopic Approach (ICD-10-PCS; principal; 2018-04-12 15:55)
DX: K85.10 Biliary acute pancreatitis without necrosis or infection (principal); K80.10 Calculus of gallbladder with chronic cholecystitis without obstruction; I10 Essential (primary) hypertension; E78.5 Hyperlipidemia, unspecified; E11.9 Type 2 diabetes mellitus without complications; K75.89 Other specified inflammatory liver diseases; Z79.84 Long term (current) use of oral hypoglycemic drugs; Z79.899 Other long term (current) drug therapy; Z90.710 Acquired absence of both cervix and uterus; Z91.040 Latex allergy status; Z77.098 Contact with and (suspected) exposure to other hazardous, chiefly nonmedicinal, chemicals; Z84.1 Family history of disorders of kidney and ureter
CPT/HCPCS: 36415; 71046; 71275; 74177; 74183; 76705; 80053; 80074; 82150; 82550; 82553; 83036; 83690; 83735; 84478; 84484; 85025; 85027; 85379; 85610; 85730; 88304; 93005; 96361; 96374; 96375; 99285

== ENCOUNTER → 2018-07-09 | Outpatient (CLI) | payer OTHER ==
--- NOTE | 2018-07-10 08:15 | MM ---
Reason for exam: additional evaluation requested from prior study. Last mammogram was performed 6 months ago. History: Family history of breast cancer in mother at age 77 and breast cancer in sister at age 38. Physical Findings: Nurse did not find any significant physical abnormalities on exam. MG 3D Diag Mammo W/Cad LT CC, MLO, and ML view(s) were taken of the left breast. Prior study comparison: January 02, 2018, left breast MG work up mamm w CAD LT. January 02, 2018, bilateral MG screening mammo w CAD. There are two left masses at 4 o'clock and 1 o'clock, mammographically stable. No new suspicious abnormality. These results were verbally communicated with the patient and result sheet given to the patient on 07/09/18. ASSESSMENT: Incomplete: need additional imaging evaluation, BI-RAD 0 RECOMMENDATION: Ultrasound of the left breast. (4 o'clock)
--- NOTE | 2018-07-10 08:18 | USB ---
Reason for exam: additional evaluation requested from prior study. History: Family history of breast cancer in mother at age 77 and breast cancer in sister at age 38. US Breast LT Left complete breast ultrasound includes all four quadrants, the retroareolar region and axilla. Finding demonstrates a 0.6 x 0.4 x 0.7cm oval, hypoechoic lesion at 4 o'clock. Although this measured 0.8 x 0.6 x 0.7cm on the prior differences in measurement may be due to obliquity. Recommendation for biopsy remains. These results were verbally communicated with the patient and result sheet given to the patient on 07/09/18. ASSESSMENT: Suspicious, BI-RAD 4 RECOMMENDATION: Ultrasound core biopsy of the left breast. (4 o'clock) Called Dr. Isaac with mammographic findings and has scheduled an appointment for the patient for 08/02/18 at 2:[address] Mccord. Biopsy scheduled for 08/03/18 at 11:30. PRELIMINARY REPORT CALLED AND FAXED TO DR. MCCORD ON 07/10/18.
== END | disposition home or self-care (01) ==
LOC: RADMAMWWP 13:49
PROVIDERS: ATTEND Internal Medicine
DX: R92.8 Other abnormal and inconclusive findings on diagnostic imaging of breast (principal)
CPT/HCPCS: 77061; 77065

== ENCOUNTER 2018-07-13 11:02 | Day surgery (SDC) | payer OTHER ==
[~2018-07-13 11:02] MED LIST changes: -DEXAMETHASONE SOD PHOSPHATE 10 MG/ML 1 ML VIAL IV ONE; -HYDROmorphone 1 MG/ML 1 ML SYRINGE IVP PRN; -MIDAZOLAM 2 MG/2 ML VIAL IV PRN; -ONDANSETRON 4 MG/2 ML VIAL IVP ONE; -Pre Op ABX Message 1 EACH MISC MISCELLANE ONE; -SCOPOLAMINE 1.5MG/72HR PATCH TRANSDERM ONE
[2018-07-13 12:12] VITALS: RESP 18; TEMP 97.5
[2018-07-13 12:23] LABS: Glucose,Whole Blood 89 mg/dL (75-99)
[2018-07-13] MEDS ORDERED: PROPOFOL 10 MG/ML 20 ML VIAL IV ONE (13:23)
[2018-07-13] MEDS ORDERED: LIDOCAINE 1% INJ 10MG/ML (20 ML MDV) ONE (13:23)
--- NOTE | 2018-07-13 13:36 | P.PCN ---
Date of Procedure: 07/13/18 Procedure(s) Performed: BRIEF HISTORY: Patient is a 57-year-old pleasant white female, scheduled for an elective colonoscopy as a part of evaluation of prior history of colon polyps. Her last coloscopy was 3 years ago and was noted to have a tubular adenoma. PROCEDURE PERFORMED: Colonoscopy. PREOPERATIVE DIAGNOSIS: History of colon polyps. IV sedation per Anesthesia. PROCEDURE: After informed consent was obtained, the patient, was brought into the endoscopy unit. IV sedation was administered by Anesthesia under continuous monitoring. Digital rectal examination was normal. Initially the Olympus CF- 160 flexible video colonoscope was then inserted in the rectum, gradually advanced into the cecum without any difficulty. Careful examination was performed as the scope was gradually being withdrawn. Ileocecal valve and the appendiceal orifice were visualized and appeared normal. Prep was excellent. Mucosa of the cecum, ascending colon, transverse colon, descending colon, sigmoid colon, and rectum appeared normal. Retroflexion was performed in the rectum and no lesions were seen. The patient tolerated the procedure well. IMPRESSION: Normal-appearing colon from rectum to cecum with no evidence of colorectal neoplasia. RECOMMENDATIONS: Findings of this examination were discussed with the patient as well as a family. She was advised to have a repeat surveillance colonoscopy in 5 years from now because of the prior history of colon polyps..
[2018-07-13 13:57] VITALS: BP 145/98; PULSE 55
== END 2018-07-13 14:24 | disposition home or self-care (01) ==
LOC: ORWHC2ENDO 11:02
PROVIDERS: ATTEND Internal Medicine Gastroenterology
DX: Z12.11 Encounter for screening for malignant neoplasm of colon (principal); Z86.010 Personal history of colon polyps; E11.9 Type 2 diabetes mellitus without complications; Z79.84 Long term (current) use of oral hypoglycemic drugs; Z79.899 Other long term (current) drug therapy; Z79.891 Long term (current) use of opiate analgesic; Z91.040 Latex allergy status
CPT/HCPCS: J2001; J2704; G0105

== ENCOUNTER 2018-10-02 06:29 | Day surgery (SDC) | payer OTHER ==
[2018-09-27 16:08] VITALS: BMI 26.1
[~2018-10-02 06:29] MED LIST changes: +LIDOCAINE 1% 20 ML VIAL (10MG/ML) FOR IV START INTRADERMA PRN
[2018-10-02] MEDS ORDERED: TIMOLOL 0.5% OPHTH DROPS 5 ML BTL OP ONE (07:00)
[2018-10-02] MEDS ORDERED: GENTAMICIN/PREDNISOL AC OPHTH OINT 3.5GM OPHTHALMIC ONE (07:00)
[2018-10-02] MEDS ORDERED: BUPIVACAINE (PF) 0.75% 5 ML, HYALURONIDASE, HUMAN RECOMB 150 UNIT, LIDOCAINE 2% (PF) 10... MISCELLANE ONE ×3 (07:00)
[2018-10-02] MEDS ORDERED: TOBRA-DEXAMET 0.3-0.1% OPHTH OINT 3.5 GM TUBE OPHTHALMIC ONE (07:00)
[2018-10-02] MEDS: CYCLOPENTOLATE 1% OPHTH SOLN 2 ML BTL OP ONE ×3 (07:10→07:25)
[2018-10-02 07:12] VITALS: TEMP 98
[2018-10-02] MEDS: PHENYLEPHRINE 10% OPHTH DROPS 5 ML BTL OP ONE ×3 (07:13→07:28)
[2018-10-02] MEDS: KETOROLAC 0.5% OPHTH DROPS 5 ML BTL OP ONE ×3 (07:16→07:31)
[2018-10-02 07:23] LABS: Glucose,Whole Blood 107 mg/dL (75-99)
[2018-10-02] MEDS ORDERED: LACTATED RINGERS 1,000 ML IV ONE (08:29)
[2018-10-02] MEDS ORDERED: MIDAZOLAM 2 MG/2 ML VIAL ONE (08:31)
[2018-10-02] MEDS ORDERED: PROPOFOL 10 MG/ML 20 ML VIAL IV ONE (08:31)
[2018-10-02] MEDS ORDERED: fentaNYL (PF) 50 MCG/ML 2 ML AMP ONE (08:31)
[2018-10-02] MEDS ORDERED: EPINEPHrine (PF) 0.5 ML in BALANCED SALT IRRIG SOLN COMB2 500 ML IRRIGATION ONE (08:49)
[2018-10-02] MEDS ORDERED: HYALURONATE SODIUM INTRAOCULAR 1 EACH SYRINGE (10MG/ML) INTRAOCULA ONE (08:51)
[2018-10-02] MEDS ORDERED: BALANCED SALT IRRIG SOLN COMB2 15 ML IRRIG.SOLN INTRAOCULA ONE (08:51)
[2018-10-02] MEDS ORDERED: TOBRA-DEXAMET 0.3-0.1% OPHTH OINT 3.5 GM TUBE LEFT EYE ONE (08:52)
--- NOTE | 2018-10-02 09:03 | P.OP ---
Date of Procedure: 10/02/18 Procedure(s) Performed: PREOPERATIVE DIAGNOSIS: Cataract, left eye. POSTOPERATIVE DIAGNOSIS: Cataract, left eye. OPERATION: Phacoemulsification of cataract, intraocular lens placement, left eye. DESCRIPTION OF PROCEDURE: The patient was taken to the operating room. Intravenous Propofol was given so as to bring about sedation. The following mixture was given for local anesthesia: 5 mL of 2% lidocaine, 5 mL of 0.75% Marcaine, and 1 mL of W[place]ase. Approximately 4 mL was injected in the retrobulbar space of the surgical eye. Additional 1 mL was then directed to the temporal area of the surgical eye. This was performed to allow adequate neurological block of the facial muscles. The patient was revived. The patient was prepped and draped in the usual sterile manner for the operative eye. A lid speculum was put into position. The conjunctiva was resected back from the limbus in the 12 o'clock position. Bleeding was controlled with electrocautery. A #69 blade was then used and a half-thickness scleral incision approximately 1-mm posterior to the limbus was made on bare sclera. This was shelved in the clear cornea using a crescent knife. Next a 15-degree blade was used to make a stab incision at the 3 o'clock position at the corneolimbal interface. A keratome blade was then used and the superior wound was extended into the anterior chamber. Viscoelastic was injected into the anterior chamber to maintain its form. A cystotome was used and a continuous anterior capsulotomy was made. Hydrodissection of the lens cortex using a blunt cannula and BSS was performed. A phaco probe was then introduced and a groove extending from 12 to 6 o'clock in the lens was created. A Marshal wand was used through the stab incision and used to perform a divide and conquer dismantling of the cataract. An irrigation aspiration probe was utilized and any residual cortex was removed from the eye. Again, viscoelastic was injected into the anterior chamber. An Alexi posterior chamber lens implant was placed in a delivery cartridge and injected into the anterior chamber. A [place] hook was utilized to spin the lens into position within the capsular bag. The irrigation and aspiration probe was again introduced and any residual viscoelastic was removed from the eye. BSS was injected via blunt canula into the limbal stab incision and the anterior chamber was re-inflated. The conjunctiva was reapproximated using electrocautery. One drop of 0.25% Timoptic was placed over the corneal along with an antibiotic ophthalmic ointment. Two sterile patches and a [place] eye shield were taped into position. The patient was transported to the recovery room in stable condition. Pathology: none sent Condition: stable Disposition: same day
[2018-10-02 09:41] VITALS: BP 106/68; PULSE 48; RESP 18
== END 2018-10-02 09:50 | disposition home or self-care (01) ==
LOC: OR 06:29
PROVIDERS: ATTEND Ophthalmology
DX: H25.13 Age-related nuclear cataract, bilateral (principal); E11.36 Type 2 diabetes mellitus with diabetic cataract; I10 Essential (primary) hypertension; Z79.84 Long term (current) use of oral hypoglycemic drugs; Z79.899 Other long term (current) drug therapy; Z91.040 Latex allergy status
CPT/HCPCS: 66984; V2632; J2250; J3470; J2001; J0171; J3010; J2704

== ENCOUNTER 2018-11-27 07:46 | Day surgery (SDC) | payer OTHER ==
[2018-11-26 10:37] VITALS: BMI 25.4
[~2018-11-27 07:46] MED LIST changes: +DEXAMETHASONE SOD PHOSPHATE 10 MG/ML 1 ML VIAL IV ONE; -LIDOCAINE 1% 20 ML VIAL (10MG/ML) FOR IV START INTRADERMA PRN; +MORPHINE SULFATE 2 MG/ML SYRINGE IV PRN; +ONDANSETRON 4 MG/2 ML VIAL IVP ONE
[2018-11-27] MEDS: PHENYLEPHRINE 10% OPHTH DROPS 5 ML BTL OP ONE ×3 (08:32→08:53)
[2018-11-27] MEDS: CYCLOPENTOLATE 1% OPHTH SOLN 2 ML BTL OP ONE ×3 (08:35→08:57)
[2018-11-27 08:38] VITALS: RESP 18; TEMP 97.4
[2018-11-27] MEDS: KETOROLAC 0.5% OPHTH DROPS 5 ML BTL OP ONE ×3 (08:39→09:02)
[2018-11-27 08:43] LABS: Glucose,Whole Blood 124 mg/dL (75-99)
[2018-11-27] MEDS ORDERED: MIDAZOLAM 2 MG/2 ML VIAL ONE (09:33)
[2018-11-27] MEDS ORDERED: PROPOFOL 10 MG/ML 20 ML VIAL IV ONE (09:33)
[2018-11-27] MEDS ORDERED: EPINEPHrine (PF) 0.5 ML in BALANCED SALT IRRIG SOLN COMB2 500 ML IRRIGATION ONE (09:44)
[2018-11-27] MEDS ORDERED: BALANCED SALT IRRIG SOLN COMB2 15 ML IRRIG.SOLN IRRIGATION ONE (09:45)
[2018-11-27] MEDS ORDERED: HYALURONATE SODIUM INTRAOCULAR 1 EACH SYRINGE (10MG/ML) INTRAOCULA ONE ×2 (09:45)
[2018-11-27] MEDS ORDERED: ACETYLCHOLINE CHLORIDE 10 MG/ML 2 ML KIT INTRAOCULA ONE (09:56)
--- NOTE | 2018-11-27 10:06 | P.OP ---
Date of Procedure: 11/27/18 Procedure(s) Performed: PREOPERATIVE DIAGNOSIS: Cataract, right eye. POSTOPERATIVE DIAGNOSIS: Cataract, right eye. OPERATION: Phacoemulsification of cataract, intraocular lens placement, right eye. DESCRIPTION OF PROCEDURE: The patient was taken to the operating room. Intravenous Propofol was given so as to bring about sedation. The following mixture was given for local anesthesia: 5 mL of 2% lidocaine, 5 mL of 0.75% Marcaine, and 1 mL of Wydase. Approximately 4 mL was injected in the retrobu lbar space of the surgical eye. Additional 1 mL was then directed to the temporal area of the surgical eye. This was performed to allow adequate neurological block of the facial muscles. The patient was revived. The patient was prepped and draped in the usual sterile manner for the operative eye. A lid speculum was put into position. The conjunctiva was resected back from the limbus in the 12 o'clock position. Bleeding was controlled with electrocautery. A #69 blade was then used and a half-thickness scleral incision approximately 1-mm posterior to the limbus was made on bare sclera. This was shelved in the clear cornea using a crescent knife. Next a 15-degree blade was used to make a stab incision at the 3 o'clock position at the corneolimbal interface. A keratome blade was then used and the superior wound was extended into the anterior chamber. Viscoelastic was injected into the anterior chamber to maintain its form. A cystotome was used and a continuous anterior capsu lotomy was made. Hydrodissection of the lens cortex using a blunt cannula and BSS was performed. A phaco probe was then introduced and a groove extending from 12 to 6 o'clock in the lens was created. A Marshal wand was used through the stab incision and used to perform a divide and conquer dismantling of the cataract. An irrigation aspiration probe was utilized and any residual cortex was removed from the eye. Again, viscoelastic was injected into the anterior chamber. An Alexi posterior chamber lens implant was placed in a delivery cartridge and injected into the anterior chamber. A Sinskey hook was utilized to spin the lens into position within the capsular bag. The irrigation and aspiration probe was again introduced and any residual viscoelastic was removed from the eye. BSS was injected via blunt canula into the limbal stab incision and the anterior chamber was re-inflated. A radial tear was noted superiorly that extended beneath the iris. Miochol was injected into the chamber and the pupil moved into position with no evidence of vitreous in the anterior chamber. The conjunctiva was reapproximated using electrocautery. One drop of 0.25% Timoptic was placed over the corneal along with an antibiotic ophthalmic ointment. Two sterile patches and a [place] eye shield were taped into position. The patient was transported to the recovery room in stable condition. Pathology: none sent Condition: stable Disposition: same day
[2018-11-27 10:27] LABS: Glucose,Whole Blood 121 mg/dL (75-99)
[2018-11-27 10:30] VITALS: BP 133/80; PULSE 53
[2018-11-27] MEDS ORDERED: TOBRA-DEXAMET 0.3-0.1% OPHTH OINT 3.5 GM TUBE OPHTHALMIC NR (23:00)
[2018-11-27] MEDS ORDERED: TIMOLOL 0.5% OPHTH DROPS 5 ML BTL OP ONE (23:00)
[2018-11-27] MEDS ORDERED: BUPIVACAINE (PF) 0.75% 5 ML, HYALURONIDASE, HUMAN RECOMB 150 UNIT, LIDOCAINE 2% (PF) 10... MISCELLANE ONE ×3 (23:00)
== END 2018-11-27 10:50 | disposition home or self-care (01) ==
LOC: OR 07:46
PROVIDERS: ATTEND Ophthalmology
DX: H25.11 Age-related nuclear cataract, right eye (principal); E11.36 Type 2 diabetes mellitus with diabetic cataract; I10 Essential (primary) hypertension; Z79.84 Long term (current) use of oral hypoglycemic drugs; Z79.899 Other long term (current) drug therapy; Z91.040 Latex allergy status
CPT/HCPCS: 66984; V2632; J2250; J3470; J2001; J0171; J2704

== ENCOUNTER 2021-12-24 09:43 | Emergency (ER) | payer BC, OTHER ==
[2021-12-24 10:00] VITALS: RESP 18; TEMP 98.2
[2021-12-24] MEDS ORDERED: BEBTELOVIMAB (EUA) 175 MG/2 ML VIAL IV ONE (12:30)
--- NOTE | 2021-12-24 13:00 | ED ---
General Adult HPI - General Chief complaint: Upper Respiratory Infection Stated complaint: Dizziness,Fever Time Seen by Provider: 12/24/21 11:10 Source: patient, family Mode of arrival: ambulatory Limitations: no limitations - History of Present Illness Initial comments: Patient is a 61-year-old female presenting with chief complaint of fever. Patient states symptoms started last night. She also admits to body aches, chills, and dry cough. She denies any chest pain, shortness of breath, palpitations, weakness. She has not taken any supportive treatment at home. She has not been tested for Covid. She denies any nausea, vomiting, abdominal pain, dysuria, hematuria, urgency, frequency, back pain, headache, vision or hearing changes, neck pain or stiffness. - Related Data Home Medications Medication Instructions Recorded Confirmed metFORMIN HCL ER [Glucophage XR] 500 mg PO DAILY 07/10/17 11/27/18 Enalapril [Vasotec] 10 mg PO DAILY 09/27/18 11/27/18 Allergies Allergy/AdvReac Type Severity Reaction Status Date / Time latex Allergy Rash/Hives Verified 12/24/21 10:00 Review of Systems ROS Statement: Those systems with pertinent positive or pertinent negative responses have been documented in the HPI. ROS Other: All systems not noted in ROS Statement are negative. Past Medical History Past Medical History: Diabetes Mellitus, GI Bleed, Hyperlipidemia, Hypertension Additional Past Medical History / Comment(s): HX OF BLOODY STOOLS AND RECEIVED BLOOD TRANSFUSIONS. , COLON POLYPS. CATARACT right EYE. History of Any Multi-Drug Resistant Organisms: None Reported Past Surgical History: Appendectomy, Cholecystectomy, Hysterectomy Additional Past Surgical History / Comment(s): CYST REMOVED BACK OF EAR,cataract lt eye Past Anesthesia/Blood Transfusion Reactions: No Reported Reaction Additional Past Anesthesia/Blood Transfusion Reaction / Comment(s): NO COMPLICATIONS Past Psychological History: No Psychological Hx Reported Smoking Status: Never smoker Past Alcohol Use History: None Reported Past Drug Use History: None Reported - Past Family History Mother Family Medical History: Cancer Additional Family Medical History / Comment(s): BREAST CANCER Father Family Medical History: No Reported History Additional Family Medical History / Comment(s): . General Exam Limitations: no limitations General appearance: alert, in no apparent distress Head exam: Present: atraumatic, normocephalic, normal inspection Eye exam: Present: normal appearance, EOMI. Absent: scleral icterus Neck exam: Present: normal inspection Respiratory exam: Present: normal lung sounds bilaterally. Absent: respiratory distress, wheezes, rales, rhonchi, stridor Cardiovascular Exam: Present: regular rate, normal rhythm, normal heart sounds. Absent: systolic murmur, diastolic murmur, rubs, gallop, clicks Neurological exam: Present: alert, oriented X3, CN II-XII intact Psychiatric exam: Present: normal affect, normal mood Skin exam: Present: warm, dry, intact, normal color. Absent: rash Course Vital Signs 12/24/21 09:56 Temperature 98.2 F Pulse Rate 68 Respiratory 18 Rate Blood Pressure 124/83 O2 Sat by Pulse 98 Oximetry - Reevaluation(s) Reevaluation #1: Patient was administered monoclonal antibodies, we will watch her for one hour to monitor for any reaction. 12/24/21 13:08 Medical Decision Making - Medical Decision Making Patient is a 61-year-old female with history of diabetes and hypertension presenting with chief complaint of fever. She also admits to a dry cough, chills, body aches. She has not taken any supportive treatment at home. In the ER she tested positive for Covid. Due to her multiple comorbidities patient received monoclonal antibodies. Patient was monitored for 1 hour post antibodies for any signs of reaction. I educated the patient on supportive treatment and current quarantine guidelines. Report back to ER if any worsening symptoms. I educated her on return parameters and alarm symptoms. I answered all questions. Follow-up with PCP in one week. Patient conveyed verbal understanding and agreed to the plan. My attending is Dr. Cai. - Lab Data Lab Results 12/24/21 Range/Units 10:03 Coronavirus (PCR) Detected A (Not Detectd) Disposition Clinical Impression: COVID Disposition: HOME SELF-CARE Condition: Good Instructions (If sedation given, give patient instructions): COVID-19 (Coronavirus Disease 2019) (ED), Face Coverings (Masks) and COVID-19 (ED), How to Recover from COVID-19 at Home (ED) Additional Instructions: You must quarantine at home for 5 days, followed by 5 days of wearing a well fitted mask any time you are in public. Take Motrin and Tylenol for pain and fever control as needed. Follow-up with your primary care provider in one week. Report back to ER with any worsening symptoms. Is patient prescribed a controlled substance at d/c from ED?: No Referrals: Omega Jones MD [Primary Care Provider] - 1-2 days Time of Disposition: 14:05
[2021-12-24 14:09] VITALS: BP 144/82; PULSE 67
== END 2021-12-24 14:05 | disposition home or self-care (01) ==
LOC: EC 09:43
DX: U07.1 COVID-19 (principal); E11.9 Type 2 diabetes mellitus without complications; I10 Essential (primary) hypertension; Z91.040 Latex allergy status
CPT/HCPCS: 87635; 99284; Q0222

== ENCOUNTER → 2022-01-21 | Outpatient (CLI) | payer BC ==
--- NOTE | 2022-01-28 15:40 | US ---
EXAMINATION TYPE: US arterial LE single level DATE OF EXAM: 01/21/2022 2:34 PM CLINICAL HISTORY: R25.2 CRAMP AND SPASM. Patient states having cramping in bilateral legs. History of hyperlipidemia and diabetes. Doppler Waveforms: Right: Biphasic to monophasic Left: Biphasic to monophasic Pulse Volume Recording: Normal Pressure Gradients: Ankle-Brachial Indices: Right: 1.0 Left: 0.9 Toe Brachial Indices: Right: 0.7 Left: 0.9 IMPRESSION: Loss of phasicity may be technical. Normal DEVONTE and TBI values bilaterally.
== END | disposition home or self-care (01) ==
LOC: RADUSWWP 13:58
PROVIDERS: ATTEND Internal Medicine
DX: R25.2 Cramp and spasm (principal); E78.5 Hyperlipidemia, unspecified
CPT/HCPCS: 93922

== ENCOUNTER 2022-11-15 02:12 | Emergency (ER) | payer BC ==
[2022-11-15] MEDS ORDERED: ACETAMINOPHEN TAB 325 MG TAB PO STA (04:01)
[2022-11-15 04:51] VITALS: BP 132/81; RESP 16
[2022-11-15] MEDS ORDERED: KETOROLAC 15 MG/ML 1 ML VIAL IM STA (05:49)
--- NOTE | 2022-11-15 05:50 | ED ---
General Adult HPI - General Chief complaint: Upper Respiratory Infection Stated complaint: Coughing,Vomitting, Body Ache Time Seen by Provider: 11/15/22 05:34 Source: patient Mode of arrival: ambulatory Limitations: no limitations - History of Present Illness Initial comments: This is a 62-year-old female with a past medical history including hypertension presents emergency department for sore throat, fevers and body aches. The patient stated this is been occurring for last 2 days. The patient stated that "everybody at work is sick and coughing" and I started having symptoms yesterday. The patient denied any other acute pain or complaints including any nausea or vomiting. The patient was resting in bed comfortably without any acute distress or shortness of breath. - Related Data Home Medications Medication Instructions Recorded Confirmed metFORMIN HCL ER [Glucophage XR] 500 mg PO DAILY 07/10/17 11/27/18 Enalapril [Vasotec] 10 mg PO DAILY 09/27/18 11/27/18 Allergies Allergy/AdvReac Type Severity Reaction Status Date / Time latex Allergy Rash/Hives Verified 11/15/22 02:35 Review of Systems ROS Statement: Those systems with pertinent positive or pertinent negative responses have been documented in the HPI. ROS Other: All systems not noted in ROS Statement are negative. Past Medical History Past Medical History: Diabetes Mellitus, GI Bleed, Hyperlipidemia, Hypertension Additional Past Medical History / Comment(s): HX OF BLOODY STOOLS AND RECEIVED BLOOD TRANSFUSIONS. , COLON POLYPS. CATARACT right EYE. History of Any Multi-Drug Resistant Organisms: None Reported Past Surgical History: Appendectomy, Cholecystectomy, Hysterectomy Additional Past Surgical History / Comment(s): CYST REMOVED BACK OF EAR,cataract lt eye Past Anesthesia/Blood Transfusion Reactions: No Reported Reaction Additional Past Anesthesia/Blood Transfusion Reaction / Comment(s): NO COMPLICATIONS Past Psychological History: No Psychological Hx Reported Smoking Status: Never smoker Past Alcohol Use History: None Reported Past Drug Use History: None Reported - Past Family History Mother Family Medical History: Cancer Additional Family Medical History / Comment(s): BREAST CANCER Father Family Medical History: No Reported History Additional Family Medical History / Comment(s): . General Exam Limitations: no limitations General appearance: alert, in no apparent distress Head exam: Present: atraumatic, normocephalic, normal inspection Eye exam: Present: normal appearance, PERRL Pupils: Present: normal accommodation ENT exam: Present: normal exam, normal oropharynx, mucous membranes moist Neck exam: Present: normal inspection, full ROM Respiratory exam: Present: normal lung sounds bilaterally Cardiovascular Exam: Present: regular rate, normal rhythm, normal heart sounds GI/Abdominal exam: Present: soft, normal bowel sounds Extremities exam: Present: normal inspection, full ROM Back exam: Present: normal inspection, full ROM Neurological exam: Present: alert, oriented X3, CN II-XII intact Psychiatric exam: Present: normal affect, normal mood Skin exam: Present: warm, dry Course Vital Signs 11/15/22 11/15/22 11/15/22 02:35 04:49 05:18 Temperature 102.7 F H 101.3 F H 99.4 F Pulse Rate 85 85 Respiratory 19 16 Rate Blood Pressure 142/87 132/81 O2 Sat by Pulse 97 98 Oximetry 11/15/22 06:09 Temperature 98.7 F Pulse Rate 81 Respiratory 16 Rate Blood Pressure O2 Sat by Pulse Oximetry Medical Decision Making - Medical Decision Making Was pt. sent in by a medical professional or institution (GEETHA Alegria, MECHANICAL SYSTEMS CONTROL ENGINEER, urgent care, hospital, or residential...) When possible be specific @ -No Did you speak to anyone other than the patient for history (EMS, parent, family, police, friend...)? What history was obtained from this source @ -No Did you review nursing and triage notes (agree or disagree)? Why? @ -I reviewed and agree with nursing and triage notes Were old charts reviewed (outside hosp., previous admission, EMS record, old EKG, old radiological studies, urgent care reports/EKG's, residential records)? Report findings @ -No old charts were reviewed Differential Diagnosis (chest pain, altered mental status, abdominal pain women, abdominal pain men, vaginal bleeding, weakness, fever, dyspnea, syncope, headache, dizziness, GI bleed, back pain, seizure, CVA, palpatations, mental health)? @ -COVID-19, RSV, influenza EKG interpreted by me (3pts min.). @ -None X-rays interpreted by me (1pt min.). @ -None done CT interpreted by me (1pt min.). @ -None done U/S interpreted by me (1pt. min.). @ -None done What testing was considered but not performed or refused? (CT, X-rays, U/S, labs)? Why? @ -A chest x-ray and EKG were considered however the patient was positive for COVID-19 and had expirations for her symptoms. The patient normal vital signs therefore did not require any further testing at this time. What meds were considered but not given or refused? Why? @ -None Did you discuss the management of the patient with other professionals (professionals i.e. Dr., PA, MECHANICAL SYSTEMS CONTROL ENGINEER, lab, RT, psych nurse, criminal justice social worker, bread dough mixer, teacher, community chest officer, case picker)? Give summary @ -No Was smoking cessation discussed for >3mins.? @ -No Was critical care preformed (if so, how long)? @ -No Were there social determinants of health that impacted care today? How? (Homelessness, low income, unemployed, alcoholism, drug addiction, transportation, low edu. Level, literacy, decrease access to med. care, detention, rehab)? @ -No Was there de-escalation of care discussed even if they declined (Discuss DNR or withdrawal of care, Hospice)? DNR status @ -No What co-morbidities impacted this encounter? (DM, HTN, Smoking, COPD, CAD, Cancer, CVA, ARF, Chemo, Hep., AIDS, mental health diagnosis, sleep apnea, morbid obesity)? @ -Retention Was patient admitted / discharged? Hospital course, mention meds given and route, prescriptions, significant lab abnormalities, going to OR and other pertinent info. @ -The patient was seen and evaluated [facility]. Physical exam, the patient was resting in bed without any acute distress. Vital signs admission were stable. Swabs were positive for COVID-19. The patient continued to remain stable with normal vital signs therefore the patient was stable for discharge home. The patient did receive a dose of IM Toradol and had improvement on reevaluation. The patient was told to continue to take Tylenol Motrin at home and to report back to the emergency department if her pain or symptoms became acutely worse including any increasing shortness of breath. The patient was afebrile on reevaluation after receiving Tylenol in the emergency department. The patient understood all these instructions and all of her questions were answered appropriately. The patient was discharged home in stable condition. Undiagnosed new problem with uncertain prognosis? @ -No Drug Therapy requiring intensive monitoring for toxicity (Heparin, Nitro, Insulin, Cardizem)? @ -No Were any procedures done? @ -No Diagnosis/symptom? @ -COVID-19 Acute, or Chronic, or Acute on Chronic? @ -Acute Uncomplicated (without systemic symptoms) or Complicated (systemic symptoms)? @ -Uncomplicated Side effects of treatment? @ -No Exacerbation, Progression, or Severe Exacerbation? @ -No Poses a threat to life or bodily function? How? (Chest pain, [place], ID, pneumonia, PE, COPD, DKA, ARF, appy, cholecystitis, CVA, Diverticulitis, Homicidal, Suicidal, threat to staff... and all critical care pts) @ -No - Lab Data Lab Results 11/15/22 Range/Units 02:47 Influenza Type A (PCR) Not Detected (Not Detectd) Influenza Type B (PCR) Not Detected (Not Detectd) RSV (PCR) Not Detected (Not Detectd) SARS-CoV-2 (PCR) Detected A (Not Detectd) Disposition Clinical Impression: COVID-19 Disposition: HOME SELF-CARE Condition: Stable Instructions (If sedation given, give patient instructions): COVID-19 (Coronavirus Disease 2019) (ED) Is patient prescribed a controlled substance at d/c from ED?: No Referrals: Bhupinder Lynne MD [Primary Care Provider] - 1-2 days Time of Disposition: 05:30
[2022-11-15 06:10] VITALS: PULSE 81; TEMP 98.7
== END 2022-11-15 06:09 | disposition home or self-care (01) ==
LOC: EC 02:12
DX: U07.1 COVID-19 (principal); I10 Essential (primary) hypertension; E78.5 Hyperlipidemia, unspecified; E11.36 Type 2 diabetes mellitus with diabetic cataract; Z79.899 Other long term (current) drug therapy; Z91.040 Latex allergy status; Z90.49 Acquired absence of other specified parts of digestive tract
CPT/HCPCS: 87636; 99283; 96372; J1885

== ENCOUNTER → 2023-01-13 | Outpatient (CLI) | payer BC ==
[2023-01-15 09:25] LABS: ALT 111 U/L; AST 75 U/L; Albumin/Globulin Ratio 1.61 Ratio; Alkaline Phosphatase 130 U/L; BUN/Creat Ratio 16.33 Ratio; Blood Urea Nitrogen 24.5 mg/dL; Calcium 10.5 mg/dL; Chloride 103 mmol/L; Chol/HDL Ratio 3.17 Ratio; Globulin 3.1 d/dL; Glucose 100 mg/dL; Potassium 4.4 mmol/L; Sodium 138 mmol/L; Total Bilirubin 1.8 mg/dL; Total Protein 8.1 d/dL
[2023-01-16 09:54] LABS: African American GFR (CKD) 43.4; Non-African American GFR(CKD) 37.6
== END | disposition home or self-care (01) ==
LOC: LABWHC1 15:06
PROVIDERS: ATTEND Internal Medicine Endocrinology, Diabetes & Metabolism
DX: E11.65 Type 2 diabetes mellitus with hyperglycemia (principal)
CPT/HCPCS: 36415; 80053; 80061; 82043; 82570; 83036; 84443

== ENCOUNTER 2024-01-01 19:25 | Emergency (ER) | payer BC ==
--- NOTE | 2024-01-01 19:39 | ED ---
Abdominal Pain HPI - General Source: patient Mode of arrival: wheelchair Limitations: no limitations <Miguel Mckay - Last Filed: 01/01/24 19:38> - General Source: patient, RN notes reviewed, old records reviewed <Wagner Evangelista - Last Filed: 01/02/24 02:17> - General Chief Complaint: Abdominal Pain Stated Complaint: Abd Pain Time Seen by Provider: 01/01/24 19:30 - History of Present Illness Initial Comments: 63-year-old female presenting to the ED with complaints of abdominal pain. She states for the past 2 weeks has had left lower quadrant pain. States today pain seems to be getting worse prompting presentation to the ED for further eval uation. Denies changes in bowel or bladder habits. Denies fever or chills. (Miguel Mckay) Patient originally evaluated as a quick note. Presents emergency department complaining of lower abdominal pain for the last 2 weeks. No significant diarrhea or change in stooling. No significant nausea or vomiting. Denies fevers, chills, cough. Denies any dysuria or hematuria. States the pain changed slightly as it is now the left side of her abdomen. Presents for further evaluation at this time. No history of abdominal surgeries. I evaluated the patient when she was placed in a room. (Wagner Evangelista) - Related Data Home Medications Medication Instructions Recorded Confirmed metFORMIN HCL ER [Glucophage XR] 500 mg PO DAILY 07/10/17 11/27/18 Enalapril [Vasotec] 10 mg PO DAILY 09/27/18 11/27/18 Previous Rx's Medication Instructions Recorded Dicyclomine [Bentyl] 10 mg PO TID PRN 5 Days #15 capsule 01/01/24 Allergies Allergy/AdvReac Type Severity Reaction Status Date / Time latex Allergy Rash/Hives Verified 01/01/24 19:29 Review of Systems ROS Other: All systems not noted in ROS Statement are negative. <Miguel Mckay - Last Filed: 01/01/24 19:38> ROS Other: All systems not noted in ROS Statement are negative. <Wagner Evangelista - Last Filed: 01/02/24 02:17> ROS Statement: Those systems with pertinent positive or pertinent negative responses have been documented in the HPI. Review of Systems: CONST: Denies fever EYES: Denies blurry vision ENT: Denies nasal congestion C/V: Denies Chest pain RESP: Denies shortness of breath GI: Endorses abdominal pain : Denies dysuria SKIN: Denies rash. MSK: Denies joint pain. NEURO: Denies headache (Wagner Evangelista) Past Medical History Past Medical History: Diabetes Mellitus, GI Bleed, Hyperlipidemia, Hypertension Additional Past Medical History / Comment(s): HX OF BLOODY STOOLS AND RECEIVED BLOOD TRANSFUSIONS. , COLON POLYPS. CATARACT right EYE. History of Any Multi-Drug Resistant Organisms: None Reported Past Surgical History: Appendectomy, Cholecystectomy, Hysterectomy Additional Past Surgical History / Comment(s): CYST REMOVED BACK OF EAR,cataract lt eye Past Anesthesia/Blood Transfusion Reactions: No Reported Reaction Additional Past Anesthesia/Blood Transfusion Reaction / Comment(s): NO COMPLICATIONS Past Psychological History: No Psychological Hx Reported Smoking Status: Never smoker Past Alcohol Use History: None Reported Past Drug Use History: None Reported - Past Family History Mother Family Medical History: Cancer Additional Family Medical History / Comment(s): BREAST CANCER Father Family Medical History: No Reported History Additional Family Medical History / Comment(s): . <Miguel Mckay - Last Filed: 01/01/24 19:38> General Exam Limitations: no limitations <Miguel Mckay - Last Filed: 01/01/24 19:38> <Wagner Evangelista - Last Filed: 01/02/24 02:17> - General Exam Comments Initial Comments: General: Appears in mild distress secondary to abdominal pain. HEAD: Normal with no signs of head trauma. EYES: PERRLA, EOMI, conjunctiva normal, no discharge. ENT: Hearing grossly intact, normal oropharynx. RESPIRATORY: Clear breath sounds bilaterally. No wheezes, rales, or rhonchi. C/V: Regular rate and rhythm. S1 and S2 auscultated, no edema, peripheral pulses 2+ and intact throughout ABD: Abdomen is soft, nondistended. Mildly tender palpation in the left lower quadrant left mid quadrant. No significant guarding. No rebound tenderness. No peritoneal signs. EXT: Normal range of motion, no obvious deformity SKIN: No rashes or lesions observed on exposed skin. NEURO: Alert and oriented x 4. (Wagner Evangelista) Course Vital Signs 01/01/24 01/01/24 01/01/24 19:27 21:29 21:30 Temperature 98.4 F Pulse Rate 66 61 60 Respiratory 18 18 16 Rate Blood Pressure 173/84 131/77 131/77 O2 Sat by Pulse 99 97 97 Oximetry 01/01/24 01/01/24 23:21 23:47 Temperature 98.8 F Pulse Rate 60 Respiratory 16 Rate Blood Pressure 129/78 O2 Sat by Pulse 99 Oximetry Medical Decision Making - Lab Data Result diagrams: 01/01/24 20:31 01/01/24 20:31 <Wagner Evangelista - Last Filed: 01/02/24 02:17> - Medical Decision Making Was pt. sent in by a medical professional or institution (, PA, PANTOGRAPH SETTER, urgent care, hospital, or snf...) When possible be specific @ -No Did you speak to anyone other than the patient for history (EMS, parent, family, police, friend...)? What history was obtained from this source @ -No Did you review nursing and triage notes (agree or disagree)? Why? @ -I reviewed and agree with nursing and triage notes Were old charts reviewed (outside hosp., previous admission, EMS record, old EKG, old radiological studies, urgent care reports/EKG's, snf records)? Report findings @ -No old charts were reviewed Differential Diagnosis (chest pain, altered mental status, abdominal pain women, abdominal pain men, vaginal bleeding, weakness, fever, dyspnea, syncope, headache, dizziness, GI bleed, back pain, seizure, CVA, palpatations, mental health, musculoskeletal)? @ -Differential Abdominal Pain Women: Appendicitis, Cholecystitis, diverticulosis, ischemic bowel, pancreatitis, hepatitis, UTI, gastroenteritis, AAA, incarcerated hernia, bowel obstruction, constipation, inflammatory bowel, hepatitis, peptic ulcer disease, splenic inf arction, perforated viscus, vulvitis, ovarian torsion, PID, kidney stone, placenta abruption, this is not meant to be an all-inclusive list EKG interpreted by me (3pts min.). @ -None done X-rays interpreted by me (1pt min.). @ -None done CT interpreted by me (1pt min.). @ -CT abdomen pelvis reveals no obvious acute intra-abdominal process. Chronic degenerative changes in the lumbar spine. U/S interpreted by me (1pt. min.). @ -None done What testing was considered but not performed or refused? (CT, X-rays, U/S, labs)? Why? @ -None What meds were considered but not given or refused? Why? @ -None Did you discuss the management of the patient with other professionals (professionals i.e. , PA, PANTOGRAPH SETTER, lab, RT, psych nurse, social work lecturer, cable splicer apprentice, teacher, business liaison officer, case monitor)? Give summary @ -No Was smoking cessation discussed for >3mins.? @ -No Was critical care preformed (if so, how long)? @ -No Were there social determinants of health that impacted care today? How? ([place] elessness, low income, unemployed, alcoholism, drug addiction, transportation, low edu. Level, literacy, decrease access to med. care, fpc, rehab)? @ -No Was there de-escalation of care discussed even if they declined (Discuss DNR or withdrawal of care, Hospice)? DNR status @ -No What co-morbidities impacted this encounter? (DM, HTN, Smoking, COPD, CAD, Cancer, CVA, ARF, Chemo, Hep., AIDS, mental health diagnosis, sleep apnea, morbid obesity)? @ -None Was patient admitted / discharged? Hospital course, mention meds given and route, prescriptions, significant lab abnormalities, going to OR and other pertinent info. @ -Patient presents with abdominal pain. Has been ongoing for the last 2 weeks. Originally seen as a quick note. Abdominal labs so far remarkable for slight elevated lipase of 321. Remainder the labs unremarkable. Small mount of blood in the urine. I discussed with the patient I would like to obtain CT imaging which was already ordered and she was in agreement this plan. She will be symptomatically treat with IV fluids, Zofran, morphine. Vital signs are within acceptable limits. CT imaging reveals no obvious acute intra-abdominal process to account for sympt oms. Labs returned remarkable for the slightly elevated lipase. Urinalysis unremarkable. Small amount of blood. On reevaluation, I updated the patient and family. Diagnosis is abdominal pain of unknown etiology. She is resting comfortably at this time. I recommended follow-up with her PCP as well as Dr. Wagner for possible colonoscopy. She was in agreement with this plan. I will provide the patient with a prescription for Bentyl. I instructed the patient to follow up with their PCP in the next 1-3 days. I provided contact information for follow up with gastro enterology. I explained that the patient should return to the emergency department if they experience any worsening symptoms. Strict return precautions were discussed with the patient. The patient expressed understanding of these instructions. I answered all questions that the patient had. The patient was discharged home in good condition with their prescriptions and follow up information. Undiagnosed new problem with uncertain prognosis? @ -No Drug Therapy requiring intensive monitoring for toxicity (Heparin, Nitro, I nsulin, Cardizem)? @ -No Were any procedures done? @ -No Diagnosis/symptom? @ -Abdominal pain of unknown etiology Acute, or Chronic, or Acute on Chronic? @ -Acute Uncomplicated (without systemic symptoms) or Complicated (systemic symptoms)? @ -Uncomplicated Side effects of treatment? @ -None Exacerbation, Progression, or Severe Exacerbation] @ -No Poses a threat to life or bodily function? @ -Unlikely (Wagner Evangelista) - Lab Data Lab Results 01/01/24 01/01/24 01/01/24 Range/Units 20:31 20:31 20:31 WBC 7.9 (3.8-10.6) k/uL RBC 4.14 (3.80-5.40) m/uL Hgb 12.2 (11.4-16.0) gm/dL Hct 35.6 (34.0-46.0) % MCV 85.9 (80.0-100.0) fL MCH 29.4 (25.0-35.0) pg MCHC 34.3 (31.0-37.0) g/dL RDW 12.6 (11.5-15.5) % Plt Count 152 (150-450) k/uL MPV 9.9 Neutrophils % 58 % Lymphocytes % 31 % Monocytes % 7 % Eosinophils % 2 % Basophils % 1 % Neutrophils # 4.6 (1.3-7.7) k/uL Lymphocytes # 2.5 (1.0-4.8) k/uL Monocytes # 0.5 (0-1.0) k/uL Eosinophils # 0.1 (0-0.7) k/uL Basophils # 0.1 (0-0.2) k/uL Sodium 138 (137-145) mmol/L Potassium 4.0 (3.5-5.1) mmol/L Chloride 108 H (98-107) mmol/L Carbon Dioxide 23 (22-30) mmol/L Anion Gap 7 mmol/L BUN 12 (7-17) mg/dL Creatinine 0.58 (0.52-1.04) mg/dL Est GFR (CKD-EPI)AfAm >90 (>60 ml/min/1.73 sqM) Est GFR (CKD-EPI)NonAf >90 (>60 ml/min/1.73 sqM) Glucose 165 H (74-99) mg/dL Plasma Lactic Acid Joel 1.6 (0.7-2.0) mmol/L Calcium 9.1 (8.4-10.2) mg/dL Total Bilirubin 0.9 (0.2-1.3) mg/dL AST 35 (14-36) U/L ALT 40 H (4-34) U/L Alkaline Phosphatase 56 (38-126) U/L Total Protein 6.8 (6.3-8.2) g/dL Albumin 4.1 (3.5-5.0) g/dL Amylase 95 (30-110) U/L Lipase 321 H (23-300) U/L Urine Color Urine Appearance (Clear) Urine pH (5.0-8.0) Ur Specific [place] (1.001-1.035) Urine Protein (Negative) Urine Glucose (UA) (Negative) Urine Ketones (Negative) Urine Blood (Negative) Urine Nitrite (Negative) Urine Bilirubin (Negative) Urine Urobilinogen (<2.0) mg/dL Ur Leukocyte Esterase (Negative) Urine RBC (0-5) /hpf Urine WBC (0-5) /hpf Ur Squamous Epith Cells (0-4) /hpf Urine Mucus (None) /hpf 01/01/24 Range/Units 21:31 WBC (3.8-10.6) k/uL RBC (3.80-5.40) m/uL Hgb (11.4-16.0) gm/dL Hct (34.0-46.0) % MCV (80.0-100.0) fL MCH (25.0-35.0) pg MCHC (31.0-37.0) g/dL RDW (11.5-15.5) % Plt Count (150-450) k/uL MPV Neutrophils % % Lymphocytes % % Monocytes % % Eosinophils % % Basophils % % Neutrophils # (1.3-7.7) k/uL Lymphocytes # (1.0-4.8) k/uL Monocytes # (0-1.0) k/uL Eosinophils # (0-0.7) k/uL Basophils # (0-0.2) k/uL Sodium (137-145) mmol/L Potassium (3.5-5.1) mmol/L Chloride (98-107) mmol/L Carbon Dioxide (22-30) mmol/L Anion Gap mmol/L BUN (7-17) mg/dL Creatinine (0.52-1.04) mg/dL Est GFR (CKD-EPI)AfAm (>60 ml/min/1.73 sqM) Est GFR (CKD-EPI)NonAf (>60 ml/min/1.73 sqM) Glucose (74-99) mg/dL Plasma Lactic Acid Joel (0.7-2.0) mmol/L Calcium (8.4-10.2) mg/dL Total Bilirubin (0.2-1.3) mg/dL AST (14-36) U/L ALT (4-34) U/L Alkaline Phosphatase (38-126) U/L Total Protein (6.3-8.2) g/dL Albumin (3.5-5.0) g/dL Amylase (30-110) U/L Lipase (23-300) U/L Urine Color Colorless Urine Appearance Clear (Clear) Urine pH 6.0 (5.0-8.0) Ur Specific [place] 1.011 (1.001-1.035) Urine Protein Negative (Negative) Urine Glucose (UA) Trace H (Negative) Urine Ketones Negative (Negative) Urine Blood Negative (Negative) Urine Nitrite Negative (Negative) Urine Bilirubin Negative (Negative) Urine Urobilinogen <2.0 (<2.0) mg/dL Ur Leukocyte Esterase Trace H (Negative) Urine RBC 12 H (0-5) /hpf Urine WBC 1 (0-5) /hpf Ur Squamous Epith Cells <1 (0-4) /hpf Urine Mucus Occasional H (None) /hpf Disposition <Miguel Mckay - Last Filed: 01/01/24 19:38> Is patient prescribed a controlled substance at d/c from ED?: No Time of Disposition: 23:42 <Wagner Evangelista - Last Filed: 01/02/24 02:17> Clinical Impression: Abdominal pain of unknown etiology Disposition: HOME SELF-CARE Condition: Good Instructions (If sedation given, give patient instructions): Abdominal Pain (ED) Prescriptions: Dicyclomine [Bentyl] 10 mg PO TID PRN 5 Days #15 capsule PRN Reason: Pain Referrals: Bhupinder Lynne MD [Primary Care Provider] - 1-2 days Larisa Guzmán MD [STAFF PHYSICIAN] - 1-2 days
[2024-01-01 20:39] LABS: Basophils # (A) 0.1 k/uL (0-0.2); Basophils % (A) 1 %; Eosinophils # (A) 0.1 k/uL (0-0.7); Eosinophils % (A) 2 %; HCT 35.6 % (34.0-46.0); HGB 12.2 gm/dL (11.4-16.0); Lymphocytes # (A) 2.5 k/uL (1.0-4.8); Lymphocytes % (A) 31 %; MCH 29.4 pg (25.0-35.0); MCHC 34.3 g/dL (31.0-37.0); MCV 85.9 fL (80.0-100.0); Mean Platelet Volume 9.9; Monocytes # (A) 0.5 k/uL (0-1.0); Monocytes % (A) 7 %; Neutrophils # (A) 4.6 k/uL (1.3-7.7); Neutrophils % (A) 58 %; Platelet Count 152 k/uL (150-450); RBC 4.14 m/uL (3.80-5.40); RDW 12.6 % (11.5-15.5); WBC 7.9 k/uL (3.8-10.6)
[2024-01-01 20:58] LABS: ALT 40 U/L (4-34); AST 35 U/L (14-36); African American GFR (CKD) >90 (>60 ml/min/1.73 sqM); Albumin 4.1 g/dL (3.5-5.0); Alkaline Phosphatase 56 U/L (38-126); Amylase 95 U/L (30-110); Anion Gap 7 mmol/L; Blood Urea Nitrogen 12 mg/dL (7-17); Calcium 9.1 mg/dL (8.4-10.2); Carbon Dioxide 23 mmol/L (22-30); Chloride 108 mmol/L (98-107); Glucose 165 mg/dL (74-99); Lipase 321 U/L (23-300); Non-African American GFR(CKD) >90 (>60 ml/min/1.73 sqM); Sodium 138 mmol/L (137-145); Total Bilirubin 0.9 mg/dL (0.2-1.3); Total Protein 6.8 g/dL (6.3-8.2)
[2024-01-01] MEDS: SODIUM CHLORIDE 0.9% 1,000 ML IV STA (21:51)
[2024-01-01] MEDS: MORPHINE SULFATE 2 MG/ML SYRINGE IVP STA (21:51)
[2024-01-01 21:52] LABS: Appearance,Urine Clear (Clear); Bilirubin,Urine Negative (Negative); Blood,Urine Negative (Negative); Color,Urine Colorless; Glucose,Urine (UA) Trace (Negative); Ketones,Urine Negative (Negative); Leukocyte Esterase,Urine Trace (Negative); Mucus,Urine Occasional /hpf; Nitrite,Urine Negative (Negative); Protein,Urine Negative (Negative); RBC,Urine 12 /hpf (0-5); Specific Gravity,Urine 1.011 (1.001-1.035); Squamous Epithelial Cell,Urine <1 /hpf (0-4); Urobilinogen,Urine <2.0 mg/dL (<2.0); WBC,Urine 1 /hpf (0-5)
[2024-01-01] MEDS: ONDANSETRON 4 MG/2 ML VIAL IVP STA (21:54)
[2024-01-01 22:39] VITALS: PULSE 60; RESP 16
--- NOTE | 2024-01-01 23:22 | CT ---
EXAMINATION TYPE: CT abdomen pelvis w con CT DLP: 708.6 mGycm, Automated exposure control for dose reduction was used. DATE OF EXAM: 01/01/2024 9:47 PM COMPARISON: None. CLINICAL INDICATION:Female, 63 years old with history of LLQ pain; LLQ pain TECHNIQUE: Axial CT of the abdomen and pelvis. Sagittal and coronal reformats were created on a [employer] workstation. Contrast used:100 mL of Isovue 370 with IV Contrast, (none if empty) Oral contrast used: without Oral Contrast (none if empty) FINDINGS: LOWER CHEST: Mild widening of the AP dimension without evidence of acute infiltrate or effusion in th e visualized lower lungs. The heart size is upper normal. No pericardial effusion. Small sliding type hernia. ABDOMEN LIVER: Small focus of low-attenuation in the anterior liver along the fissure for ligamentum teres, m ost consistent with focal fat. Otherwise unremarkable liver. GALLBLADDER AND BILE DUCTS: Gallbladder is not readily visualized, either completely contracted or ab sent. No specific abnormality of the biliary tree. Pancreatic duct is visible but not overly dilated. PANCREAS: Unremarkable. SPLEEN: Unremarkable. ADRENAL GLANDS: Tiny round nodule right adrenal, nonspecific but nonaggressive in appearance.. KIDNEYS AND URETERS: Kidneys enhance symmetrically. No evidence of hydronephrosis or visible renal ca lculus. The ureters are unremarkable. PELVIS BLADDER: Incompletely distended but grossly unremarkable. REPRODUCTIVE: Organs not seen, correlate with history. ABDOMEN & PELVIS STOMACH AND BOWEL: Stomach and small bowel are nondistended, no evidence of obstruction. Radiodensi ty in the right lower quadrant pericecal region may be related to previous appendectomy. There is so me stool and gas seen throughout the colon with no focal acute abnormality shown. PERITONEUM/RETROPERITONEUM: No evidence of pneumoperitoneum or free fluid. VASCULATURE: Mild atherosclerotic changes are present in the abdominal aorta and branches. No evidenc e of aortic aneurysm. Portal veins are enhancing. Splenic vein is patent. SMV is unremarkable. LYMPH NODES: No enlarged nodes by CT size criteria. SOFT TISSUE/ABDOMINAL WALL: Unremarkable MUSCULOSKELETAL: No acute osseous abnormalities. Moderate disc degeneration changes are present throu ghout the thoracolumbar spine. 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 IMPRESSION: 1. No acute CT abnormality identified to explain the patient's symptoms. 2. Other chronic and likely incidental findings, as described above.
[2024-01-01 23:27] VITALS: BP 129/78
[2024-01-02 00:20] VITALS: TEMP 98.8
== END 2024-01-01 23:48 | disposition home or self-care (01) ==
LOC: EC 19:25
DX: R10.32 Left lower quadrant pain (principal); Z90.49 Acquired absence of other specified parts of digestive tract; Z91.040 Latex allergy status
CPT/HCPCS: 36415; 80053; 82150; 83605; 83690; 85025; 81001; 74177; 99284; 96374; 96361; J2270; Q9967

== ENCOUNTER 2024-10-26 09:16 | Emergency (ER) | payer BC ==
[2024-10-26 09:22] VITALS: TEMP 98
--- NOTE | 2024-10-26 09:34 | ED ---
General Adult HPI - General Chief complaint: Neck Pain/Injury Stated complaint: R shoulder numbness and pain Time Seen by Provider: 10/26/24 09:20 Source: patient Mode of arrival: ambulatory Limitations: no limitations - History of Present Illness Initial comments: Dictation was produced using [employer] dictation software. please excuse any grammatical, word or spelling errors. Chief Complaint: 64-year-old female presents to the ER for shoulder neck pain History of Present Illness: Patient 64-year-old female has been having daily shoulder neck pain for 1 month. Patient has not seen her primary care doctor for this. States that her pain was significantly worse this morning states that whenever she sleeps she notices that her arm position causes some numbness to her hand. Patient states that the pain is getting significantly worse. She is afraid to follow-up with her primary care doctor because she does not want to miss work or lose her job. The ROS documented in this emergency department record has been reviewed and confirmed by me. Those systems with pertinent positive or negative responses have been documented in the HPI. All other systems are other negative and/or noncontributory. - Related Data Home Medications Medication Instructions Recorded Confirmed metFORMIN HCL ER [Glucophage XR] 500 mg PO DAILY 07/10/17 11/27/18 Enalapril [Vasotec] 10 mg PO DAILY 09/27/18 11/27/18 Previous Rx's Medication Instructions Recorded Dicyclomine [Bentyl] 10 mg PO TID PRN 5 Days #15 capsule 01/01/24 HYDROcodone/APAP 5-325MG [[place] 1 tab PO Q6HR PRN 3 Days #12 tab 10/26/24 5-325] methylPREDNISolone Dose Pack 4 mg PO DIRECTED #1 packet 10/26/24 [Medrol Dose Pack] Allergies Allergy/AdvReac Type Severity Reaction Status Date / Time latex Allergy Rash/Hives Verified 01/01/24 19:29 Review of Systems ROS Statement: Those systems with pertinent positive or pertinent negative responses have been documented in the HPI. ROS Other: All systems not noted in ROS Statement are negative. Past Medical History Past Medical History: Diabetes Mellitus, GI Bleed, Hyperlipidemia, Hypertension Additional Past Medical History / Comment(s): HX OF BLOODY STOOLS AND RECEIVED BLOOD TRANSFUSIONS. , COLON POLYPS. CATARACT right EYE. History of Any Multi-Drug Resistant Organisms: None Reported Past Surgical History: Appendectomy, Cholecystectomy, Hysterectomy Additional Past Surgical History / Comment(s): CYST REMOVED BACK OF EAR,cataract lt eye Past Anesthesia/Blood Transfusion Reactions: No Reported Reaction Additional Past Anesthesia/Blood Transfusion Reaction / Comment(s): NO COMPLICATIONS Past Psychological History: No Psychological Hx Reported Smoking Status: Never smoker Past Alcohol Use History: None Reported Past Drug Use History: None Reported - Past Family History Mother Family Medical History: Cancer Additional Family Medical History / Comment(s): BREAST CANCER Father Family Medical History: No Reported History Additional Family Medical History / Comment(s): . General Exam - General Exam Comments Initial Comments: PHYSICAL EXAM: General Impression: Alert and oriented x3, not in acute distress HEENT: Normocephalic atraumatic, extra-ocular movements intact, pupils equal and reactive to light bilaterally, mucous membranes moist. Cardiovascular: Heart regular rate and rhythm Chest: Able to complete full sentences, no retractions, no tachypnea Abdomen: abdomen soft, non-tender, non-distended, no organomegaly Musculoskeletal: Pulses present and equal in all extremities, no peripheral edema, pain reproduced to the right shoulder with abduction of the arm Motor: no focal deficits noted Neurological: CN II-XII grossly intact, no focal motor or sensory deficits noted Skin: Intact with no visualized rashes Psych: Normal affect and mood Limitations: no limitations Course Vital Signs 10/26/24 09:19 Temperature 98 F Pulse Rate 55 L Respiratory 20 Rate Blood Pressure 169/71 O2 Sat by Pulse 99 Oximetry Medical Decision Making - Medical Decision Making Was pt. sent in by a medical professional or institution (, PA, ENERGY SPECIALIST, urgent care, hospital, or [facility]...) When possible be specific @ -No Did you speak to anyone other than the patient for history (EMS, parent, family, police, friend...)? What history was obtained from this source @ -No Did you review nursing and triage notes (agree or disagree)? Why? @ -I reviewed and agree with nursing and triage notes Were old charts reviewed (outside hosp., previous admission, EMS record, old EKG, old radiological studies, urgent care reports/EKG's, [facility] records)? Report findings @ -No old charts were reviewed Differential Diagnosis (chest pain, altered mental status, abdominal pain women, abdominal pain men, vaginal bleeding, musculoskeletal, weakness, fever, dyspnea, syncope, headache, dizziness, GI bleed, back pain, seizure, CVA, palpatations, mental health)? @ -CVA, cervical radiculopathy, shoulder strain EKG interpreted by me (3pts min.). @ -None done X-rays interpreted by me (1pt min.). @ -None done CT interpreted by me (1pt min.). @ -CT of the cervical spine shows neuroforaminal stenosis at the right C6 area. U/S interpreted by me (1pt. min.). @ -None done What testing was considered but not performed or refused? (CT, X-rays, U/S, labs)? Why? @ -None What meds were considered but not given or refused? Why? @ -None Was smoking cessation discussed for >3mins.? @ -No Were there social determinants of health that impacted care today? How? (Homelessness, low income, unemployed, alcoholism, drug addiction, transportation, low edu. Level, literacy, decrease access to med. care, long term, rehab)? @ -No Was there de-escalation of care discussed even if they declined (Discuss DNR or withdrawal of care, Hospice)? DNR status @ -No What co-morbidities impacted this encounter? (DM, HTN, Smoking, COPD, CAD, Cancer, CVA, ARF, Chemo, Hep., AIDS, mental health diagnosis, sleep apnea, morbid obesity)? @ -None Was patient admitted / discharged? Hospital course, mention meds given and route, prescriptions, significant lab abnormalities, going to OR and other pertinent info. @ -64-year-old female cervical radiculopathy. Patient has a positional component along with isolated right lower extremity symptoms. vital signs upon arrival are within acceptable limits. Imaging studies suggest cervical radiculopathy stemming from the right lower cervical neural foramen. Patient given Toradol. Patient discharged with referral to spine surgery along with symptom medications. Patient discharged Did you discuss the management of the patient with other professionals (professionals i.e. , PA, ENERGY SPECIALIST, lab, RT, psych nurse, social worker clinical, heavy duty truck mechanic, teacher, first officer, case technician)? Give summary @ -No Was critical care preformed (if so, how long)? @ -No Undiagnosed new problem with uncertain prognosis? @ -No Drug Therapy requiring intensive monitoring for toxicity (Heparin, Nitro, Insulin, Cardizem)? @ -No Were any procedures done? @ -No Diagnosis/symptom? Acute, or Chronic, or Acute on Chronic? Uncomplicated (without systemic symptoms) or Complicated (systemic symptoms)? @ -Cervical radiculopathy Side effects of treatment? @ -No Exacerbation, Progression, or Severe Exacerbation? @ -No Poses a threat to life or bodily function? How? (Chest pain, [place], [place], pneumonia, PE, COPD, DKA, ARF, appy, cholecystitis, CVA, Diverticulitis, Homicidal, Suicidal, threat to staff... and all critical care pts) @ -yes Disposition Clinical Impression: Cervical radiculopathy Disposition: HOME SELF-CARE Condition: Fair Instructions (If sedation given, give patient instructions): Cervical Radiculopathy (ED) Prescriptions: methylPREDNISolone Dose Pack [Medrol Dose Pack] 4 mg PO DIRECTED #1 packet HYDROcodone/APAP 5-325MG [[place] 5-325] 1 tab PO Q6HR PRN 3 Days #12 tab PRN Reason: Severe Pain Is patient prescribed a controlled substance at d/c from ED?: Yes If prescribed controlled substance>3 days was MAPS reviewed?: Prescribed <3 Days Referrals: Bhupinder Lynne MD [Primary Care Provider] - 1-2 days Sierra Yost DO [Doctor of Osteopathic Medicine] - 1-2 days Time of Disposition: 10:38
[2024-10-26] MEDS: KETOROLAC 15 MG/ML 1 ML VIAL IM STA (09:40)
--- NOTE | 2024-10-26 09:59 | XR ---
EXAMINATION TYPE: XR shoulder complete RT DATE OF EXAM: 10/26/2024 9:55 AM INDICATION: Patient age:Female; 64 years old; Reason for study: radiculopathy; pain COMPARISON: Chest radiograph 12/27/2021 TECHNIQUE: The right shoulder was examined in AP, internally rotated and scapular Y projections. . FINDINGS: No evidence of acute osseous pathology, joint dislocation, or soft tissue swelling. The remaining por tions of the visualized chest are unremarkable. IMPRESSION: No acute osseous pathology. [facility], , 10/26/2024 9:57 AM
--- NOTE | 2024-10-26 10:05 | CT ---
EXAMINATION TYPE: CT cervical spine wo con CT DLP: 250.9 mGycm, Automated exposure control for dose reduction was used. DATE OF EXAM: 10/26/2024 9:55 AM COMPARISON: None. CLINICAL INDICATION:Female, 64 years old with history of radiculopathy; PHH, Right shoulder, neck nic n. chronic, pain TECHNIQUE: Axial CT images from the skull base to the inferior aspect of T2 we obtained without intra venous contrast. Coronal and sagittal reformatted images were also reviewed. FINDINGS: Fracture: None. Osseous structures: Anterior osteophytosis at C5-C6. Flowing calcification of the posterior longitudi nal ligament throughout the cervical spine. Most pronounced at C2-C3 and C6-T2. Vertebral alignment: Within normal limits. Spinal canal/Neural Foramina: Posterior longitudinal ligament calcification at C2-C3 results in mild central canal stenosis. Posterior disc osteophyte complex at C3-C4 with mild central canal stenosis. Posterior disc osteophyte complex at C4-C5 with mild central canal stenosis. Posterior longitudinal l igament calcification at C6-C7 results in [id number] central canal stenosis. No significant nelda ral foraminal stenosis at C2-C3, C3-C4, C5-C6, and C7-T1. Mild right neural foraminal stenosis at C4- C5. The left neural foramen is patent. Moderate to severe right neural foraminal stenosis at C6-C7. T he left neural foramen is patent. Neck soft tissues: Prevertebral soft tissues are within normal limits. Other: The airway is patent. The lung apices are clear. IMPRESSION: 1. No evidence of cervical spine fracture. 2. 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 [facility], , 10/26/2024 10:02 AM
[2024-10-26 10:49] VITALS: BP 149/86; PULSE 61; RESP 18
== END 2024-10-26 10:47 | disposition home or self-care (01) ==
LOC: EC 09:16
DX: M54.12 Radiculopathy, cervical region (principal); Z91.040 Latex allergy status
CPT/HCPCS: 99284; 96372; 73030; 72125; J1885

== ENCOUNTER 2024-11-14 05:06 | Emergency (ER) | payer BC ==
--- NOTE | 2024-11-14 05:56 | ED ---
General Adult HPI <Rafael Ordonez - Last Filed: 11/14/24 09:10> - General Source: patient Mode of arrival: ambulatory <Yany Kaye - Last Filed: 11/14/24 20:10> - General Chief complaint: Extremity Problem,Nontraumatic Stated complaint: nvd, abd pain - History of Present Illness Initial comments: Patient is a 64-year-old female with history of hypertension, diabetes presenting today for spasms in her legs. Patient states yesterday she had 3 episodes of nausea, vomiting and diarrhea. Emesis was nonbloody nonbilious, nonbloody. Stool was light yellow in color. She denies abdominal pain. Denies fevers or chills. States she was going to bed last night and she felt sharp pains in her legs and felt her feet "curl up" and felt her legs spasm. This occurred again early this morning while patient was in bed and patient felt like she could not walk due to the pain. She currently denies numbness, weakness, shortness of breath, cough, chest pain or abdominal pain, dysuria or hematuria. Nausea seems to have improved. States yesterday she had a mild headache which has since improved. Tried to use tylenol for her pain without relief. Denies new back pain or any falls. (Yany Kaye) - Related Data Home Medications Medication Instructions Recorded Confirmed metFORMIN HCL ER [Glucophage XR] 500 mg PO DAILY 07/10/17 11/27/18 Enalapril [Vasotec] 10 mg PO DAILY 09/27/18 11/27/18 Previous Rx's Medication Instructions Recorded Dicyclomine [Bentyl] 10 mg PO TID PRN 5 Days #15 capsule 01/01/24 HYDROcodone/APAP 5-325MG [[place] 1 tab PO Q6HR PRN 3 Days #12 tab 10/26/24 5-325] methylPREDNISolone Dose Pack 4 mg PO DIRECTED #1 packet 10/26/24 [Medrol Dose Pack] Cyclobenzaprine [Flexeril] 10 mg PO TID PRN 5 Days #15 tab 11/14/24 Allergies Allergy/AdvReac Type Severity Reaction Status Date / Time latex Allergy Rash/Hives Verified 11/14/24 05:11 Review of Systems ROS Other: All systems not noted in ROS Statement are negative. <Rafael Ordonez - Last Filed: 11/14/24 09:10> ROS Other: All systems not noted in ROS Statement are negative. <Yany Kaye - Last Filed: 11/14/24 20:10> ROS Statement: Those systems with pertinent positive or pertinent negative responses have been documented in the HPI. Past Medical History Past Medical History: Diabetes Mellitus, GI Bleed, Hyperlipidemia, Hypertension Additional Past Medical History / Comment(s): HX OF BLOODY STOOLS AND RECEIVED BLOOD TRANSFUSIONS. , COLON POLYPS. CATARACT right EYE. History of Any Multi-Drug Resistant Organisms: None Reported Past Surgical History: Appendectomy, Cholecystectomy, Hysterectomy Additional Past Surgical History / Comment(s): CYST REMOVED BACK OF EAR,cataract lt eye Past Anesthesia/Blood Transfusion Reactions: No Reported Reaction Additional Past Anesthesia/Blood Transfusion Reaction / Comment(s): NO COMPLICATIONS Past Psychological History: No Psychological Hx Reported Smoking Status: Never smoker Past Alcohol Use History: None Reported Past Drug Use History: None Reported - Past Family History Mother Family Medical History: Cancer Additional Family Medical History / Comment(s): BREAST CANCER Father Family Medical History: No Reported History Additional Family Medical History / Comment(s): . <Yany Kaye - Last Filed: 11/14/24 20:10> General Exam <Yany Kaye - Last Filed: 11/14/24 20:10> - General Exam Comments Initial Comments: PE: CONSTITUTIONAL: No apparent distress, well appearing SKIN: Warm, dry, no jaundice, hives or petechiae EYES: Pupils are equally round, extraocular movements intact without nystagmus, clear conjunctiva, non-icteric sclera HENT: Normocephalic, atraumatic, moist mucus membranes, oropharynx clear without exudates NECK: , Full range of motion, normal appearance PULMONARY: Clear to auscultation without wheezes, rhonchi, or rales, normal excursion, no accessory muscle use and no stridor CARDIOVASCULAR: Regular rate, rhythm, normal S1 and S2. No appreciated murmurs, rubs or gallops. Strong radial and dorsalis pedis pulses with intact distal perfusion. No lower extremity edema GASTROINTESTINAL: Soft, active bowel sounds throughout, non-tender, non- distended, no palpable masses, no rebound or guarding. No hepatosplenomegaly MUSCULOSKELETAL: Extremities have no gross deformity, no edema, redness, or swelling. No calf swelling. NO venous prominence. Patient endorses muscle spasms in calfs with dorsi- and plantar flexion of feet NEUROLOGIC:_a/o x 3, GCS 15, normal mentation and speech. Moves all extremities x 4 without motor or sensory deficit PSYCHIATRIC:_normal mood and affect, thought process is clear and linear (Yany Kaye) Course Vital Signs 11/14/24 11/14/24 11/14/24 05:09 05:57 07:05 Temperature 97.7 F 97.7 F Pulse Rate 76 75 77 Respiratory 18 20 18 Rate Blood Pressure 116/74 122/91 116/68 O2 Sat by Pulse 97 99 97 Oximetry 11/14/24 11/14/24 08:54 09:29 Temperature 98.0 F 98.0 F Pulse Rate 81 80 Respiratory 18 16 Rate Blood Pressure 114/58 101/58 O2 Sat by Pulse 95 96 Oximetry EKG Findings - EKG Comments: EKG Findings:: Sinus Rhythm, normal intervals, normal axis, no ST elevations or depressions, no arrythemia, no ischemic changes <Yany Kaye - Last Filed: 11/14/24 20:10> Medical Decision Making - Lab Data Result diagrams: 11/14/24 05:53 11/14/24 07:02 <Rafael Ordonez - Last Filed: 11/14/24 09:10> - Lab Data Result diagrams: 11/14/24 05:53 11/14/24 07:02 <Yany Kaye - Last Filed: 11/14/24 20:10> - Medical Decision Making Patient reevaluated by myself, Dr. Ordonez. Patient resting comfortably in bed. No discomfort at this time. Patient states she has spasms around every 30 minutes. Patient is interested in repeat dose of Toradol. Patient still has some mild nausea and will be given a dose of Zofran. Patient otherwise would like to be discharged. Repeat labs reviewed. Patient and family updated. (Rafael Ordonez) Was pt. sent in by a medical professional or institution (, PA, PRODUCT SUPPORT TECHNICIAN, urgent care, hospital, or senior care...) When possible be specific @ -No Did you speak to anyone other than the patient for history (EMS, parent, family, police, friend...)? What history was obtained from this source @ -No Did you review nursing and triage notes (agree or disagree)? Why? @ -I reviewed nursing and triage notes- States patient here for vomiting and leg pain, patient's vomiting has since resolved, now here for muscle spasms in legs Were old charts reviewed (outside hosp., previous admission, EMS record, old EKG, old radiological studies, urgent care reports/EKG's, senior care records)? Report findings @ -Medical records reviewed patient had a CT cervical spine performed on 10/26/2024 for radiculopathy, she was noted to have extensive posterior longitudinal ligament calcification of the visualized cervical thoracic spine resulting in varying degrees of central canal and neural foraminal stenosis Differential Diagnosis (chest pain, altered mental status, abdominal pain women, abdominal pain men, vaginal bleeding, weakness, fever, dyspnea, syncope, headache, dizziness, GI bleed, back pain, seizure, CVA, palpatations, mental health, musculoskeletal)? Differential Musculoskeletal Muscular strain, contusion, ligament sprain, fracture, arthritis, septic arthritis, bursitis, cellulitis, muscle spasm, nerve compression, DVT, arterial occlusion, herpes zoster, electrolyte abnormality, tumor.... This is not meant to be in all inclusive list EKG interpreted by me (3pts min.). @ -As above X-rays interpreted by me (1pt min.). @ -None done CT interpreted by me (1pt min.). @ -None done U/S interpreted by me (1pt. min.). @ -None done What testing was considered but not performed or refused? (CT, X-rays, U/S, l abs)? Why? @ -None What meds were considered but not given or refused? Why? @ -None Did you discuss the management of the patient with other professionals (professionals i.e. , PA, PRODUCT SUPPORT TECHNICIAN, lab, RT, psych nurse, sr. social media & mobile manager, dog barber, teacher, ecological technical officer, case finishing machine adjuster)? Give summary @ -No Was smoking cessation discussed for >3mins.? @ -No Was critical care preformed (if so, how long)? @ -No Were there social determinants of health that impacted care today? How? (Homelessness, low income, unemployed, alcoholism, drug addiction, transportation, low edu. Level, literacy, decrease access to med. care, [facility], rehab)? @ -No Was there de-escalation of care discussed even if they declined (Discuss DNR or withdrawal of care, Hospice)? @ -No What co-morbidities impacted this encounter? (DM, HTN, Smoking, COPD, CAD, Cancer, CVA, ARF, Chemo, Hep., AIDS, mental health diagnosis, sleep apnea, morbid obesity)? @ -None Was patient admitted / discharged? Hospital course, mention meds given and route, prescriptions, significant lab abnormalities, going to OR and other pertinent info. @ Signed out to oncoming physician, pending completion of repeat BMP, anticipate discharge- this is a pleasant 64-year-old female presenting today for muscle spasms in her lower extremities after a day of nausea vomiting and diarrhea. Patient's vital signs w/in acceptable limits on arrival. Exam overall benign with palpable spasms in the calf muscles with plantar and dorsiflexion flexion of her feet. Discussed with patient obtaining basic labs to assess for electrolyte abnormality, will obtain CK as well. Patient will be given Toradol and Flexeril as well as IV fluids. She is agreeable w/ plan of care. Patient's labs were significant for mild leukocytosis white blood cell count 13.1, I suspect secondary to episodes of emesis, hyponatremia sodium 129, potassium of 5.2, cl 96, carbon oxide 17, patient's kidney function is within normal limits with a GFR of 70 creatinine 0.89. On reassessment patient endorsed improvement of symptoms. Will give additional litre IV NS and recheck a basic panel to ensure improvement of hyponatremia prior to discharge. Updated patient and to lab findings and plan of care. We discussed the importance of increasing her sodium intake today and following up with her PCP HUSSAIN for recheck of labs if discharged. Patient agreeable with plan of care. Pt signed out to [facility], Dr. Ordonez, pending completion of repeat BMP. Undiagnosed new problem with uncertain prognosis? @ -No Drug Therapy requiring intensive monitoring for toxicity (Heparin, Nitro, Insulin, Cardizem)? @ -No Were any procedures done? @ -No Diagnosis/symptom? @Muscle spasms, hyponatremia Acute, or Chronic, or Acute on Chronic? @ acute Uncomplicated (without systemic symptoms) or Complicated (systemic symptoms)? @complicated Side effects of treatment? @ -No Exacerbation, Progression, or Severe Exacerbation? @ -No Poses a threat to life or bodily function? How? (Chest pain, [place], OR, pneumonia, PE, COPD, DKA, ARF, appy, cholecystitis, CVA, Diverticulitis, Homicidal, Suic idal, threat to staff... and all critical care pts) @ -No (Yany Kaye) - Lab Data Lab Results 11/14/24 11/14/24 11/14/24 Range/Units 05:34 05:53 05:53 WBC 13.1 H (3.8-10.6) k/uL RBC 5.13 (3.80-5.40) m/uL Hgb 14.3 (11.4-16.0) gm/dL Hct 44.3 (34.0-46.0) % MCV 86.4 (80.0-100.0) fL MCH 28.0 (25.0-35.0) pg MCHC 32.4 (31.0-37.0) g/dL RDW 12.8 (11.5-15.5) % Plt Count 214 (150-450) k/uL MPV 8.7 Neutrophils % 86 % Lymphocytes % 9 % Monocytes % 4 % Eosinophils % 1 % Basophils % 0 % Neutrophils # 11.2 H (1.3-7.7) k/uL Lymphocytes # 1.2 (1.0-4.8) k/uL Monocytes # 0.5 (0-1.0) k/uL Eosinophils # 0.1 (0-0.7) k/uL Basophils # 0.0 (0-0.2) k/uL Sodium 129 L (137-145) mmol/L Potassium 5.2 H (3.5-5.1) mmol/L Chloride 96 L (98-107) mmol/L Carbon Dioxide 17 L (22-30) mmol/L Anion Gap 16 mmol/L BUN 37 H (7-17) mg/dL Creatinine 0.89 (0.52-1.04) mg/dL Est GFR (CKD-EPI)AfAm 80 (>60 ml/min/1.73 sqM) Est GFR (CKD-EPI)NonAf 70 (>60 ml/min/1.73 sqM) Glucose 134 H (74-99) mg/dL Calcium 10.2 (8.4-10.2) mg/dL Magnesium 1.7 (1.6-2.3) mg/dL Total Bilirubin 2.0 H (0.2-1.3) mg/dL AST 28 (14-36) U/L ALT 28 (4-34) U/L Alkaline Phosphatase 50 (38-126) U/L Creatine Kinase 132 (30-135) U/L Total Protein 8.0 (6.3-8.2) g/dL Albumin 5.1 H (3.5-5.0) g/dL Lipase 102 (23-300) U/L Influenza Type A (PCR) Not Detected (Not Detectd) Influenza Type B (PCR) Not Detected (Not Detectd) RSV (PCR) Not Detected (Not Detectd) SARS-CoV-2 (PCR) Not Detected (Not Detectd) 11/14/24 Range/Units 07:02 WBC (3.8-10.6) k/uL RBC (3.80-5.40) m/uL Hgb (11.4-16.0) gm/dL Hct (34.0-46.0) % MCV (80.0-100.0) fL MCH (25.0-35.0) pg MCHC (31.0-37.0) g/dL RDW (11.5-15.5) % Plt Count (150-450) k/uL MPV Neutrophils % % Lymphocytes % % Monocytes % % Eosinophils % % Basophils % % Neutrophils # (1.3-7.7) k/uL Lymphocytes # (1.0-4.8) k/uL Monocytes # (0-1.0) k/uL Eosinophils # (0-0.7) k/uL Basophils # (0-0.2) k/uL Sodium 131 L (137-145) mmol/L Potassium 5.0 (3.5-5.1) mmol/L Chloride 103 (98-107) mmol/L Carbon Dioxide 16 L (22-30) mmol/L Anion Gap 12 mmol/L BUN 34 H (7-17) mg/dL Creatinine 0.86 (0.52-1.04) mg/dL Est GFR (CKD-EPI)AfAm 84 (>60 ml/min/1.73 sqM) Est GFR (CKD-EPI)NonAf 73 (>60 ml/min/1.73 sqM) Glucose 122 H (74-99) mg/dL Calcium 8.8 (8.4-10.2) mg/dL Magnesium (1.6-2.3) mg/dL Total Bilirubin (0.2-1.3) mg/dL AST (14-36) U/L ALT (4-34) U/L Alkaline Phosphatase (38-126) U/L Creatine Kinase (30-135) U/L Total Protein (6.3-8.2) g/dL Albumin (3.5-5.0) g/dL Lipase (23-300) U/L Influenza Type A (PCR) (Not Detectd) Influenza Type B (PCR) (Not Detectd) RSV (PCR) (Not Detectd) SARS-CoV-2 (PCR) (Not Detectd) Disposition Is patient prescribed a controlled substance at d/c from ED?: No <Rafael Ordonez - Last Filed: 11/14/24 09:10> Is patient prescribed a controlled substance at d/c from ED?: No <Yany Kaye - Last Filed: 11/14/24 20:10> Clinical Impression: Muscle spasm, Hyponatremia Disposition: HOME SELF-CARE Condition: Good Instructions (If sedation given, give patient instructions): Hyponatremia (ED), Muscle Spasm (ED) Additional Instructions: Every disease is a spectrum and a small chance still exists that a serious condition could develop, for this reason, please monitor yourself closely for new, changing or worsening symptoms, symptoms that persist beyond 48 hours, lightheadedness or dizziness, chest pain or shortness of breath fever, inability to tolerate/keep down fluids or your medications, inability to follow up with outpatient providers as instructed and should you experience these symptoms or should you have any further concerns for your wellbeing please return to the ED or call 911 immediately. Please drink plenty of electrolyte rich fluids such as Gatorade, Pedialyte, increase your salt intake today, get plenty of rest. You may use warm compresses, warm baths and muscle massage along with prescribed Flexeril for your muscle spasms. PLEASE call your primary care physician as soon as possible to arrange / discuss plan for followup appointment. Appointment in the next 1-3 days is strongly encouraged if possible. PLEASE let us know here before you leave if there is anything further we can do to be of any assistance. Take care and feel Better! Prescriptions: Cyclobenzaprine [Flexeril] 10 mg PO TID PRN 5 Days #15 tab PRN Reason: Muscle Spasm Referrals: Bhupinder Lynne MD [Primary Care Provider] - 1-2 days
[2024-11-14 06:01] LABS: Basophils % (A) 0 %; Eosinophils # (A) 0.1 k/uL (0-0.7); Eosinophils % (A) 1 %; HCT 44.3 % (34.0-46.0); HGB 14.3 gm/dL (11.4-16.0); Lymphocytes # (A) 1.2 k/uL (1.0-4.8); Lymphocytes % (A) 9 %; MCHC 32.4 g/dL (31.0-37.0); MCV 86.4 fL (80.0-100.0); Mean Platelet Volume 8.7; Monocytes # (A) 0.5 k/uL (0-1.0); Monocytes % (A) 4 %; Neutrophils # (A) 11.2 k/uL (1.3-7.7); Neutrophils % (A) 86 %; Platelet Count 214 k/uL (150-450); RBC 5.13 m/uL (3.80-5.40); RDW 12.8 % (11.5-15.5); WBC 13.1 k/uL (3.8-10.6)
[2024-11-14] MEDS: KETOROLAC 15 MG/ML 1 ML VIAL IVP STA ×2 (06:01→09:12)
[2024-11-14] MEDS: CYCLOBENZAPRINE 10 MG TAB PO STA (06:05)
[2024-11-14] MEDS: SODIUM CHLORIDE 0.9% 1,000 ML IV ONE ×2 (06:06→06:49)
[2024-11-14 06:33] LABS: Influenza A Not Detected (Not Detectd); Influenza B Not Detected (Not Detectd); RSV Not Detected (Not Detectd)
[2024-11-14 06:34] LABS: ALT 28 U/L (4-34); AST 28 U/L (14-36); African American GFR (CKD) 80 (>60 ml/min/1.73 sqM); Albumin 5.1 g/dL (3.5-5.0); Alkaline Phosphatase 50 U/L (38-126); Anion Gap 16 mmol/L; Blood Urea Nitrogen 37 mg/dL (7-17); Calcium 10.2 mg/dL (8.4-10.2); Carbon Dioxide 17 mmol/L (22-30); Chloride 96 mmol/L (98-107); Creatine Kinase 132 U/L (30-135); Glucose 134 mg/dL (74-99); Lipase 102 U/L (23-300); Magnesium 1.7 mg/dL (1.6-2.3); Non-African American GFR(CKD) 70 (>60 ml/min/1.73 sqM); Potassium 5.2 mmol/L (3.5-5.1); Sodium 129 mmol/L (137-145)
[2024-11-14 07:32] LABS: African American GFR (CKD) 84 (>60 ml/min/1.73 sqM); Anion Gap 12 mmol/L; Blood Urea Nitrogen 34 mg/dL (7-17); Calcium 8.8 mg/dL (8.4-10.2); Carbon Dioxide 16 mmol/L (22-30); Chloride 103 mmol/L (98-107); Glucose 122 mg/dL (74-99); Non-African American GFR(CKD) 73 (>60 ml/min/1.73 sqM); Sodium 131 mmol/L (137-145)
[2024-11-14 08:55] VITALS: TEMP 98
[2024-11-14] MEDS: ONDANSETRON 4 MG/2 ML VIAL IVP STA (09:11)
[2024-11-14 09:34] VITALS: BP 101/58; PULSE 80; RESP 16
== END 2024-11-14 09:37 | disposition home or self-care (01) ==
LOC: EC 05:06
DX: E87.1 Hypo-osmolality and hyponatremia (principal); M62.838 Other muscle spasm; I10 Essential (primary) hypertension; E11.9 Type 2 diabetes mellitus without complications; Z91.040 Latex allergy status
CPT/HCPCS: 36415; 93005; 80053; 80048; 82550; 83690; 83735; 85025; 87636; 99285; 96374; 96375; 96376; 96361; J2405; J1885